=== PATIENT | female | born 1940 | race Caucasian/White ===

== ENCOUNTER → 2016-03-22 | Outpatient (CLI) | payer BC ==
[~2016-03-22] MED LIST: CEFU1TAB36 PO; CHOL1000 PO; CMD/25 PO; CMD25 PO; FLUT1INH7 INH; FURO-85 PO; HYDR-5688 PO; IMD/2 PO; IPRASOL4 INH; PSYL48.59 PO; PSYL55.43 PO; [UNRECOGNIZED DRUG - CODE] PO
--- NOTE | 2016-03-22 12:48 | DIAGNOSTIC IMAGING REPORT ---
CHEST CT WITHOUT CONTRAST CT DOSE: HISTORY: LUNG CANCER, PT HAS CONTRAST ALLERGY TECHNIQUE: Multiaxial CT images of the chest were performed without contrast. COMPARISON: Chest CT 09/19/2015. FINDINGS: Stable 6 mm nodule within the left lung apex. Stable small nodular and irregular densities within the right lung apex. No new pulmonary nodules identified. No pneumothorax. Trace right pleural effusion persists. A thick band of consolidation seen within the right lung is not suitably change. This contains a small amount of calcification. There is associated traction bronchiectasis. 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 Stable scarlike density within the upper right breast. No mediastinal or hilar lymphadenopathy on this noncontrast study. Stable volume loss within the right hemithorax consistent with prior postoperative change. No suspicious lytic or blastic osseous lesions. IMPRESSION: 1. Overall, no significant change compared the prior study. No evidence for recurrent or metastatic disease within the chest. 2. Stable postoperative/post radiation changes within the right hemithorax. 3. Please refer to the same day abdomen and pelvis CT for further evaluation of the abdominal structures. Electronically signed by: Gilbert Vásquez M.D. 03/22/2016 12:47 PM Dictated Date/Time: 03/22/2016 12:10 PM
--- NOTE | 2016-03-23 09:01 | DIAGNOSTIC IMAGING REPORT ---
CT OF THE ABDOMEN AND PELVIS WITH ORAL CONTRAST CT DOSE: 937.08 mGy.cm CLINICAL HISTORY: Lung cancer. TECHNIQUE: Axial images of the abdomen and pelvis were obtained without IV contrast. Oral contrast was administered. COMPARISON STUDY: CT of the abdomen and pelvis December 22, 2014. FINDINGS: The chest will be reported separately. Evaluation of the abdomen and pelvis is suboptimal given the lack of IV contrast. Unenhanced images of the liver, spleen, adrenal glands and pancreas are unremarkable. Mild dilatation of the common bile duct is unchanged from prior exam and likely due to cholecystectomy. A large left renal cyst is noted. There is a small right renal cyst. No enlarged abdominal or pelvic lymph nodes are present. There is no evidence for a bowel obstruction. No suspicious skeletal lesions are identified. IMPRESSION: No evidence for recurrent malignancy within the abdomen or pelvis on unenhanced exam. Electronically signed by: Lan Erazo M.D. 03/23/2016 8:59 AM Dictated Date/Time: 03/22/2016 12:17 PM
== END | disposition home or self-care (01) ==
LOC: C.CTS 11:34
PROVIDERS: ATTEND Internal Medicine Hematology & Oncology
DX: C34.90 Malignant neoplasm of unspecified part of unspecified bronchus or lung (principal)

== ENCOUNTER 2016-04-15 14:30 | Emergency (ER) | payer BC ==
[~2016-04-15] VITALS: Ht 157.5 cm; Wt 71.4 kg
[~2016-04-15 14:30] MED LIST changes: -CEFU1TAB36 PO; -FLUT1INH7 INH; -HYDR-5688 PO; -IPRASOL4 INH; -PSYL48.59 PO
[2016-04-15 14:35] VITALS: TEMP 36.8
[2016-04-15] MEDS ORDERED: ALBUT/IPRATROP 3MG/0.5MG NEB 3 ML VIAL INH STA (15:44)
--- NOTE | 2016-04-15 15:48 | EMERGENCY ROOM VISIT NOTE ---
History Report prepared by Enrrique: Dot Jacobo Under the Supervision of: Dr. Shiv Hale D.O. First contact with patient: 15:33 Chief Complaint: COUGH Stated Complaint: COUGH,VOMITING,HILLS,NO APPETITE Nursing Triage Summary: pt c/o breathing difficulty , chills, cough, . pt has hx of lung ca unsure if bronchitis or pneumonia History of Present Illness The patient is a 75 year old female who presents to the Emergency Room with complaints of a worsening cough for the past several days. She is accompanied by her . She has a history of lung cancer and complains of increased breathing difficulty along with the cough. She reports any time she gets a cold or flu like symptoms, "it goes very badly for me" and she ends up with bronchitis or a pneumonia. She denies any fevers. She notes the cough is productive with white to yellow colored sputum. The patient reports she went to a local urgent care clinic yesterday, where she was told she most likely had bronchitis and was started on Cefuroxime. She denies any chest pain but admits to some shortness of breath. Her breathing difficulties do worsen when she lays flat. The patient is on daily Coumadin and notes she received a flu shot this year. 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 A total of 10 systems reviewed and were otherwise negative. Past Medical & Surgical Medical Problems: (1) Adenocarcinoma of lung Social History Smoking Status: Never Smoker Alcohol Use: none Drug Use: none Marital Status: Housing Status: lives with family Occupation Status: retired Current/Historical Medications Scheduled Cefuroxime Axetil (Cefuroxime Axetil), 1 TAB PO BID Cholecalciferol (Vitamin D3), 2,000 UNITS PO DAILY Crizotinib (Xalkori), 200 MG PO BID Warfarin Sod (Coumadin), 2.5 MG PO [id number] Warfarin Sod (Coumadin), 3.75 MG PO WK Scheduled PRN Furosemide (Lasix), 20 MG PO DAILY PRN for Edema Loperamide Hcl (Imodium), 2 MG PO UD PRN for Diarrhea Psyllium (Metamucil Powder), 5 ML PO TID PRN for Diarrhea Allergies Coded Allergies: Morphine (Verified Allergy, Severe, SHORTNESS OF BREATH, 04/15/16) Iodinated Diagnostic Agents (Verified Adverse Reaction, Intermediate, GI Sx - constrast media, 04/15/16) Codeine (Verified Adverse Reaction, Mild, VOMITING, 04/15/16) Physical Exam Vital Signs Date Time Temp Pulse Resp B/P Pulse Ox O2 Delivery O2 Flow Rate FiO2 04/15/16 19:10 88 20 117/58 92 04/15/16 16:20 82 20 105/53 94 Room Air 04/15/16 16:10 82 04/15/16 15:56 100 Room Air 04/15/16 14:35 36.8 68 18 96/61 99 Room Air Physical Exam GENERAL: Patient is awake, alert, in no acute distress, patient is resting comfortably and showing no signs of anxiety EYES: The conjunctivae are clear. The pupils are round and reactive. EARS, NOSE, MOUTH AND THROAT: The nose is without any evidence of any deformity. Mucous membranes are moist tongue is midline NECK: The neck is nontender and supple. RESPIRATORY: Lung sounds are diminished throughout, scattered rhonchi noted throughout, no significant tachypnea or conversational dyspnea noted. CARDIOVASCULAR: Regular rate and rhythm noted there no murmurs rubs or gallops normal S1 normal S2 GASTROINTESTINAL: The abdomen is soft. Bowel sounds are present in all quadrants. Abdomen is nontender PELVIS: The Pelvis is stable. No tenderness to palpation is noted. BACK: No midline tenderness or or step-off noted range of motion in flexion extension as well as rotation no signs of muscle spasm noted MUSCULOSKELETAL/EXTREMITIES: There is no evidence of gross deformity full range of motion is noted in the hips and shoulders SKIN: Pedal edema bilaterally. There is no obvious evidence of any rash. There are no petechiae, pallor or cyanosis noted. NEUROLOGIC: Patient is awake alert and oriented x3 Medical Decision & Procedures ER Provider Diagnostic Interpretation: This X-Ray was reviewed and interpreted by myself and the radiologist. CHEST 2 VIEWS ROUTINE IMPRESSION: 1. Slight progression of the right pleural effusion. Postoperative changes and the right mid to lower lung zone opacification persist. 3. Emphysema. Electronically signed by: Gilbert Vásquez M.D. 04/15/2016 5:14 PM Laboratory Results 04/15/16 15:56 Red Blood Count 4.21, Mean Corpuscular Volume 96.9, Mean Corpuscular Hemoglobin 33.0, Mean Corpuscular Hemoglobin Concent 34.1, Mean Platelet Volume 10.4, Neutrophils (%) (Auto) 75.2, Lymphocytes (%) (Auto) 13.1, Monocytes (%) (Auto) 11.3, Eosinophils (%) (Auto) 0.0, Basophils (%) (Auto) 0.1, Neutrophils # (Auto ) 8.55, Lymphocytes # (Auto) 1.49, Monocytes # (Auto) 1.29, Eosinophils # (Auto ) 0.00, Basophils # (Auto) 0.01 04/15/16 15:56 Test 04/15/16 15:51 04/15/16 15:56 Influenza Type A Antigen Neg for Influ A (NEG) Influenza Type B Antigen Neg for Influ B (NEG) White Blood Count 11.37 K/uL (4.8-10.8) Red Blood Count 4.21 M/uL (4.2-5.4) Hemoglobin 13.9 g/dL (12.0-16.0) Hematocrit 40.8 % (37-47) Mean Corpuscular Volume 96.9 fL (80-100) Mean Corpuscular Hemoglobin 33.0 pg (25-34) Mean Corpuscular Hemoglobin Concent 34.1 g/dl (32-36) Platelet Count 157 K/uL (130-400) Mean Platelet Volume 10.4 fL (7.4-10.4) Neutrophils (%) (Auto) 75.2 % Lymphocytes (%) (Auto) 13.1 % Monocytes (%) (Auto) 11.3 % Eosinophils (%) (Auto) 0.0 % Basophils (%) (Auto) 0.1 % Neutrophils # (Auto) 8.55 K/uL (1.4-6.5) Lymphocytes # (Auto) 1.49 K/uL (1.2-3.4) Monocytes # (Auto) 1.29 K/uL (0.11-0.59) Eosinophils # (Auto) 0.00 K/uL (0-0.5) Basophils # (Auto) 0.01 K/uL (0-0.2) RDW Standard Deviation 48.5 fL (36.4-46.3) RDW Coefficient of Variation 13.6 % (11.5-14.5) Immature Granulocyte % (Auto) 0.3 % Immature Granulocyte # (Auto) 0.03 K/uL (0.00-0.02) Prothrombin Time 22.9 SECONDS (9.0-12.0) Prothromb Time International Ratio 2.1 (0.9-1.1) Activated Partial Thromboplast Time 43.2 SECONDS (21.0-31.0) Partial Thromboplastin Ratio 1.7 Anion Gap 10.0 mmol/L (3-11) Est Creatinine Clear Calc Drug Dose 25.7 ml/min Estimated GFR () 33.1 Estimated GFR (Non- 28.6 BUN/Creatinine Ratio 13.2 (10-20) Calcium Level 8.0 mg/dl (8.5-10.1) Total Bilirubin 0.7 mg/dl (0.2-1) Aspartate Amino Transf (AST/SGOT) 26 U/L (15-37) Alanine Aminotransferase (ALT/SGPT) 27 U/L (12-78) Alkaline Phosphatase 78 U/L (45-117) Troponin I < 0.015 ng/ml (0-0.045) Pro-B-Type Natriuretic Peptide 219 pg/ml (0-1800) Total Protein 6.6 gm/dl (6.4-8.2) Albumin 2.9 gm/dl (3.4-5.0) Globulin 3.7 gm/dl (2.5-4.0) Albumin/Globulin Ratio 0.8 (0.9-2) Laboratory results per my review. Medications Administered Medications (Trade) Dose Ordered Sig/Dominic Route Start Time Stop Time Status Last Admin Dose Admin Albuterol/ Ipratropium 3 ml 3 ml NOW STAT INH 04/15/16 15:44 04/15/16 15:45 DC 04/15/16 16:00 3 ML Sodium Chloride (Nss 1000ml) 1,000 ml @ 999 mls/hr Q1H1M STAT IV 04/15/16 17:52 04/15/16 18:52 DC 04/15/16 17:52 999 MLS/HR ED Course 1543: The patient was evaluated in room C8. A complete history and physical examination were performed. 1544: DuoNeb 3 ml INH. 1750: I reevaluated the patient. She is feeling much better and will continue all her medications as prescribed. 1752: NSS 1000 ml @ 999 mls/hr IV. Medical Decision Prior records/ancillary studies reviewed. Triage Nursing notes reviewed. Additional history obtained from the family. The patient's history was concerning for respiratory difficulties. Differential diagnosis: Etiologies such as infections, reactive airway disease, pneumonia, pneumothorax , COPD, CHF, cardiac ischemia, pulmonary embolism, musculoskeletal, gastrointestinal, as well as others were entertained. The patient is a 75-year-old female who presented to the emergency department for evaluation of shortness of breath and cough. The patient was seen by a provider and started on an antibiotic recently. She was concerned she may have pneumonia because she doesn't a history of cancer. She was treated with a DuoNeb in the emergency department. She was reevaluated multiple times. She was also given IV fluids. At this time I do not feel this represents pneumonia and I would recommend she continues on the antibiotic that she was started on. She was encouraged to rest and avoid any strenuous activity. She was also encouraged to call her primary care physician in the morning to schedule a follow-up point 8. She was also encouraged to discuss the possibility that she may require repeat laboratory studies specifically her left lites. She was also encouraged to return to the emergency apartment immediately if symptoms change worsen or the need arises. Impression Primary Impression: Bronchitis Additional Impression: Dehydration Scribe Attestation The scribe's documentation has been prepared under my direction and personally reviewed by me in its entirety. I confirm that the note above accurately reflects all work, treatment, procedures, and medical decision making performed by me. Departure Information Dispostion Home / Self-Care Referrals Shiv Langston M.D. (PCP) Patient Instructions Bronchitis Acute, Dehydration, My [facility] Additional Instructions Call your family in the morning to schedule a follow-up appointment. Rest and avoid any strenuous activity. Continue all medications as prescribed. Drink plenty clear liquids. Problem Qualifiers
[2016-04-15] MEDS ORDERED: CEFU1TAB36 PO (15:54)
[2016-04-15 15:56] VITALS: O2SAT 100
[2016-04-15 16:06] VITALS: Ht 157.5 cm; Wt 71.4 kg
[2016-04-15 16:09] LABS: HEMATOCRIT 40.8 % (37-47); MEAN CELL VOLUME 96.9 fL (80-100); MEAN CORPUSCULAR HGB CONC 34.1 g/dl (32-36); MEAN PLATELET VOLUME 10.4 fL (7.4-10.4); PLATELET COUNT 157 K/uL (130-400); RED BLOOD COUNT 4.21 M/uL (4.2-5.4); WHITE BLOOD COUNT 11.37 K/uL (4.8-10.8)
[2016-04-15 16:24] LABS: INR 2.1 (0.9-1.1); PARTIAL THROMBOPLASTIN RATIO 1.7; PROTHROMBIN TIME (PATIENT) 22.9 SECONDS (9.0-12.0)
[2016-04-15 16:27] LABS: BASO % 0.1 %; BASO ABS # 0.01 K/uL (0-0.2); COMPLETE YES; IG% 0.3 %; LYMPH % 13.1 %; LYMPH ABS # 1.49 K/uL (1.2-3.4); MONO % 11.3 %; NEUT % 75.2 %
[2016-04-15 16:48] LABS: ALT/SGPT 27 U/L (12-78); AST/SGOT 26 U/L (15-37); BLOOD UREA NITROGEN 22 mg/dl (7-18); BUN/CREATININE RATIO 13.2 (10-20); CARBON DIOXIDE 25 mmol/L (21-32); CHLORIDE 103 mmol/L (98-107); GLUCOSE 118 mg/dl (70-99); POTASSIUM 4.3 mmol/L (3.5-5.1); SODIUM 138 mmol/L (136-145)
[2016-04-15 16:53] LABS: ALB/GLOB RATIO 0.8 (0.9-2); ALKALINE PHOSPHATASE 78 U/L (45-117)
--- NOTE | 2016-04-15 17:15 | DIAGNOSTIC IMAGING REPORT ---
CHEST 2 VIEWS ROUTINE HISTORY: EVALUATE RESPIRATORY DISTRESS.DYSPNEA COMPARISON: Chest 12/27/2015. FINDINGS: The lungs are hyperexpanded with apical predominant emphysematous changes. No pneumothorax. The right mid to lower lung zone opacity is again noted. The left lung is clear. The cardiac silhouette is normal in size. Multiple surgical clips at the right hilum. Prior cholecystectomy. Right pleural fluid has slightly progressed. IMPRESSION: 1. Slight progression of the right pleural effusion. Postoperative changes and the right mid to lower lung zone opacification persist. 3. Emphysema. Electronically signed by: Gilbert Vásquez M.D. 04/15/2016 5:14 PM Dictated Date/Time: 04/15/2016 5:12 PM
[2016-04-15] MEDS ORDERED: SODIUM CHLORIDE 0.9% 1000ML 1,000 ML IV STA (17:52)
[2016-04-15 19:10] VITALS: BP 117/58; PULSE 88; O2SAT 92
[2016-10-31] MEDS ORDERED: FLUT1INH7 INH (09:24)
== END 2016-04-15 19:11 | disposition home or self-care (01) ==
LOC: C.EDB 14:30 → C.EDC 19:11
DX: J40 Bronchitis, not specified as acute or chronic (principal); E86.0 Dehydration; Z85.118 Personal history of other malignant neoplasm of bronchus and lung; Z79.01 Long term (current) use of anticoagulants; Z79.899 Other long term (current) drug therapy; Z88.5 Allergy status to narcotic agent; Z91.041 Radiographic dye allergy status

== ENCOUNTER 2016-06-17 12:57 | Emergency (ER) | payer BC ==
[~2016-06-17] VITALS: Ht 157.5 cm; Wt 71.2 kg
[2016-06-17 13:12] VITALS: TEMP 36.6; Ht 157.5 cm; Wt 71.2 kg
[2016-06-17] MEDS ORDERED: IPRASOL4 INH (13:29)
[2016-06-17] MEDS ORDERED: PSYL48.59 PO (13:29)
[2016-06-17] MEDS ORDERED: XYLOCAINE 1%/SOD BICARB 20 ML VIAL INFIL ONE (13:36)
[2016-06-17] MEDS ORDERED: ONDANSETRON INJ 2 MG/ML 2 ML VIAL IV STA (13:50)
[2016-06-17] MEDS ORDERED: SODIUM CHLORIDE 0.9% 1000ML 1,000 ML IV STA (13:50)
[2016-06-17] MEDS ORDERED: FENTANYL CITRATE INJ 50 MCG/1 ML 2 ML VIAL IV STA (13:50)
[2016-06-17 13:59] LABS: COMPLETE YES; EOS % 0.9 %; HEMATOCRIT 41.8 % (37-47); IG% 0.7 %; LYMPH % 20.6 %; LYMPH ABS # 1.15 K/uL (1.2-3.4); MEAN CELL VOLUME 96.8 fL (80-100); MEAN CORPUSCULAR HEMOGLOBIN 33.1 pg (25-34); MEAN CORPUSCULAR HGB CONC 34.2 g/dl (32-36); MEAN PLATELET VOLUME 10.3 fL (7.4-10.4); MONO % 10.6 %; NEUT % 67.2 %; PLATELET COUNT 219 K/uL (130-400); RED BLOOD COUNT 4.32 M/uL (4.2-5.4); WHITE BLOOD COUNT 5.57 K/uL (4.8-10.8)
[2016-06-17 14:06] LABS: INR 2.5 (0.9-1.1); PARTIAL THROMBOPLASTIN RATIO 1.5; PROTHROMBIN TIME (PATIENT) 27.4 SECONDS (9.0-12.0)
[2016-06-17 14:13] LABS: BUN/CREATININE RATIO 18.5 (10-20); CALCIUM 8.5 mg/dl (8.5-10.1); CREATININE 1.3 mg/dl (0.60-1.20); POTASSIUM 4.5 mmol/L (3.5-5.1)
--- NOTE | 2016-06-17 14:41 | DIAGNOSTIC IMAGING REPORT ---
RIGHT HUMERUS MIN 2 VIEWS ROUTINE CLINICAL HISTORY: Fall. Right arm deformity. COMPARISON: Chest CT March 22, 2016. FINDINGS: There is an acute mildly displaced right humeral neck fracture which extends into the inferior aspect of the right humeral head. No additional fractures of the right humerus are identified. Post surgical findings within the right lung are incidentally noted. IMPRESSION: Acute mildly displaced right humeral neck fracture. Electronically signed by: Lan Erazo M.D. 06/17/2016 2:39 PM Dictated Date/Time: 06/17/2016 2:37 PM
--- NOTE | 2016-06-17 15:12 | DIAGNOSTIC IMAGING REPORT ---
HEAD CT NONCONTRAST CT DOSE: 712.55 mGy.cm HISTORY: Closed head injury. TECHNIQUE: Multiaxial CT images of the head were performed without the use of intravenous contrast. Automated exposure control was utilized for this study. Comparison: PET CT 06/27/2011. Findings: The paranasal sinuses and mastoid air cells are clear. The calvarium and skull base are intact. There is no mass, hematoma, midline shift, acute infarct. White matter hypodensity is nonspecific but suggestive of microvascular ischemic change. The ventricles and sulci demonstrate mild age-related involutional changes. Small right frontal scalp laceration. Impression: No acute intracranial abnormality. Small right frontal scalp laceration. Electronically signed by: Gilbert Vásquez M.D. 06/17/2016 3:09 PM Dictated Date/Time: 06/17/2016 3:04 PM
--- NOTE | 2016-06-17 15:35 | EMERGENCY ROOM VISIT NOTE ---
ED Visit Note I was requested by Dr. Taylor to repair a 2 cm facial laceration. Wound Repair: Complexity: Complex Verbal consent was obtained after the risks and benefits were explained, including but not limited to bleeding, scarring, infection, pain, and bone/joint /nerve damage. The skin was prepped with betadine and a sterile field set. The wound was anesthetized with 3.0 ml of 1% buffered lidocaine. With direct pressure the bleeding subsided. Copious irrigation was performed using sterile saline. The wound was explored for foreign bodies and none found. Debridement was not performed. The deep tissue was approximated with 3 interrupted 6-0 Vicryl sutures. The wound edges were then approximated using 6-0 Ethilon with 6 simple interrupted sutures. Hemostasis and excellent approximation was achieved. Antibacterial ointment and a sterile dressing applied. Detailed wound care instructions and signs and symptoms of infection reviewed with the patient. No complications and the patient tolerated the procedure well.
[2016-06-17] MEDS ORDERED: HYDR-5688 PO (16:28)
[2016-06-17] MEDS ORDERED: NORCO 5/325MG HOME PACK PO ONE (16:30)
[2016-06-17] MEDS ORDERED: DIPHTHERIA/TETANUS/PERTUSSIS 0.5 ML SYR/VIAL IM. ONE (16:30)
[2016-06-17 17:05] VITALS: BP 146/86; PULSE 84; O2SAT 94
--- NOTE | 2016-06-17 17:18 | EMERGENCY ROOM VISIT NOTE ---
History Report prepared by Enrrique: Beata Lovett Under the Supervision of: Dr. Liana Taylor M.D. First contact with patient: 13:36 Chief Complaint: FALL Stated Complaint: FALL History of Present Illness The patient is a 75 year old female who presents to the Emergency Room with complaints of persistent bleeding from her head starting [employer]. She tripped and fell today and hit her head and injured her right arm. She did not pass out. She had a nose bleed. The pain in her arm worsens with movement. She is on Coumadin for blood clots. She has swelling which is normal and due to her cancer medications. Source of History: patient Onset: [employer] Position: head Quality: other (bleeding) Timing: other (persistent) Note: Pt reports arm pain, nose bleed. She denies passing out. Review of Systems See HPI for pertinent positives & negatives. A total of 10 systems reviewed and were otherwise negative. Past Medical & Surgical Medical Problems: (1) Adenocarcinoma of lung Family History No pertinent family history reported. Social History Smoking Status: Never Smoker Alcohol Use: none Drug Use: none Marital Status: Housing Status: lives with family Occupation Status: retired Current/Historical Medications Scheduled Cholecalciferol (Vitamin D3), 2,000 UNITS PO DAILY Crizotinib (Xalkori), 200 MG PO BID Psyllium (Metamucil), 1 TSP PO BID Warfarin Sod (Coumadin), 2.5 MG PO 6XWK Warfarin Sod (Coumadin), 3.75 MG PO WK Scheduled PRN Furosemide (Lasix), 20 MG PO DAILY PRN for Edema Hydrocodone/Acetaminophen 5MG/325MG ([place] 5MG/325MG), 1-2 TABLET PO Q6 PRN for Pain Ipratropium-Albuterol (Duoneb), 1 TREATMENT INH Q4H PRN for SOB/Wheezing Loperamide Hcl (Imodium), 2 MG PO UD PRN for Diarrhea Allergies Coded Allergies: Morphine (Verified Allergy, Severe, SHORTNESS OF BREATH, 06/17/16) Iodinated Diagnostic Agents (Verified Adverse Reaction, Intermediate, GI Sx - constrast media, 06/17/16) Codeine (Verified Adverse Reaction, Mild, VOMITING, 06/17/16) Physical Exam Vital Signs Date Time Temp Pulse Resp B/P Pulse Ox O2 Delivery O2 Flow Rate FiO2 06/17/16 17:05 84 20 146/86 94 06/17/16 15:48 78 20 158/78 98 Room Air 06/17/16 14:06 76 06/17/16 13:12 36.6 75 18 113/95 100 Room Air Physical Exam Vital signs reviewed. General: Chronically ill-appearing, in no significant distress. HEENT: No scleral icterus, PERRLA, neck supple. Cardiovascular: Regular rate and rhythm, no extra sounds. Pulmonary: Clear to auscultation bilaterally, normal work of breathing. Abdomen: Soft, nontender, nondistended, positive bowel sounds. Musculoskeletal: Nontender over the cervical spine. No deformity. Swelling and tenderness to right humerus with diffuse edema to the arms and legs that is pitting. Neurologic: Patient awake alert and oriented x 3, full strength in all 4 extremities. Cranial nerves 2 through 12 grossly intact. Skin: Warm, dry, no rash. 2 cm linear laceration to the right forehead. Medical Decision & Procedures ER Provider Diagnostic Interpretation: X-ray results as stated below per interpretation by me and the radiologist. Radiology results as stated below per my review and radiologist interpretation: HEAD CT NONCONTRAST CT DOSE: 712.55 mGy.cm HISTORY: Closed head injury. TECHNIQUE: Multiaxial CT images of the head were performed without the use of intravenous contrast. Automated exposure control was utilized for this study. Comparison: PET CT 06/27/2011. Findings: The paranasal sinuses and mastoid air cells are clear. The calvarium and skull base are intact. There is no mass, hematoma, midline shift, acute infarct. White matter hypodensity is nonspecific but suggestive of microvascular ischemic change. The ventricles and sulci demonstrate mild age-related involutional changes. Small right frontal scalp laceration. Impression: No acute intracranial abnormality. Small right frontal scalp laceration. Electronically signed by: Gilbert Vásquez M.D. 06/17/2016 3:09 PM Dictated Date/Time: 06/17/2016 3:04 PM RIGHT HUMERUS MIN 2 VIEWS ROUTINE CLINICAL HISTORY: Fall. Right arm deformity. COMPARISON: Chest CT March 22, 2016. FINDINGS: There is an acute mildly displaced right humeral neck fracture which extends into the inferior aspect of the right humeral head. No additional fractures of the right humerus are identified. Post surgical findings within the right lung are incidentally noted. IMPRESSION: Acute mildly displaced right humeral neck fracture. Electronically signed by: Lan Erazo M.D. 06/17/2016 2:39 PM Dictated Date/Time: 06/17/2016 2:37 PM Laboratory Results 06/17/16 13:15 Red Blood Count 4.32, Mean Corpuscular Volume 96.8, Mean Corpuscular Hemoglobin 33.1, Mean Corpuscular Hemoglobin Concent 34.2, Mean Platelet Volume 10.3, Neutrophils (%) (Auto) 67.2, Lymphocytes (%) (Auto) 20.6, Monocytes (%) (Auto) 10.6, Eosinophils (%) (Auto) 0.9, Basophils (%) (Auto) 0.0, Neutrophils # (Auto ) 3.74, Lymphocytes # (Auto) 1.15, Monocytes # (Auto) 0.59, Eosinophils # (Auto ) 0.05, Basophils # (Auto) 0.00 06/17/16 13:15 Test 06/17/16 13:15 White Blood Count 5.57 K/uL (4.8-10.8) Red Blood Count 4.32 M/uL (4.2-5.4) Hemoglobin 14.3 g/dL (12.0-16.0) Hematocrit 41.8 % (37-47) Mean Corpuscular Volume 96.8 fL (80-100) Mean Corpuscular Hemoglobin 33.1 pg (25-34) Mean Corpuscular Hemoglobin Concent 34.2 g/dl (32-36) Platelet Count 219 K/uL (130-400) Mean Platelet Volume 10.3 fL (7.4-10.4) Neutrophils (%) (Auto) 67.2 % Lymphocytes (%) (Auto) 20.6 % Monocytes (%) (Auto) 10.6 % Eosinophils (%) (Auto) 0.9 % Basophils (%) (Auto) 0.0 % Neutrophils # (Auto) 3.74 K/uL (1.4-6.5) Lymphocytes # (Auto) 1.15 K/uL (1.2-3.4) Monocytes # (Auto) 0.59 K/uL (0.11-0.59) Eosinophils # (Auto) 0.05 K/uL (0-0.5) Basophils # (Auto) 0.00 K/uL (0-0.2) RDW Standard Deviation 48.8 fL (36.4-46.3) RDW Coefficient of Variation 13.7 % (11.5-14.5) Immature Granulocyte % (Auto) 0.7 % Immature Granulocyte # (Auto) 0.04 K/uL (0.00-0.02) Prothrombin Time 27.4 SECONDS (9.0-12.0) Prothromb Time International Ratio 2.5 (0.9-1.1) Activated Partial Thromboplast Time 37.9 SECONDS (21.0-31.0) Partial Thromboplastin Ratio 1.5 Anion Gap 9.0 mmol/L (3-11) Est Creatinine Clear Calc Drug Dose 33.5 ml/min Estimated GFR () 45.8 Estimated GFR (Non- 39.5 BUN/Creatinine Ratio 18.5 (10-20) Calcium Level 8.5 mg/dl (8.5-10.1) Total Bilirubin 0.5 mg/dl (0.2-1) Direct Bilirubin 0.2 mg/dl (0-0.2) Aspartate Amino Transf (AST/SGOT) 30 U/L (15-37) Alanine Aminotransferase (ALT/SGPT) 35 U/L (12-78) Alkaline Phosphatase 100 U/L (45-117) Total Protein 6.6 gm/dl (6.4-8.2) Albumin 3.0 gm/dl (3.4-5.0) Laboratory results per my review. Medications Administered Medications (Trade) Dose Ordered Sig/Dominic Route Start Time Stop Time Status Last Admin Dose Admin Fentanyl Citrate (Fentanyl Inj) 50 mcg NOW STAT IV 06/17/16 13:50 06/17/16 13:53 DC 06/17/16 13:56 50 MCG Ondansetron HCl 4 mg 4 mg NOW STAT IV 06/17/16 13:50 06/17/16 13:53 DC 06/17/16 13:55 4 MG Sodium Chloride (Nss 1000ml) 1,000 ml @ 125 mls/hr Q8H STAT IV 06/17/16 13:50 06/17/16 17:42 DC 06/17/16 13:56 125 MLS/HR Acetaminophen/ Hydrocodone Bitart ([place] 5/325mg Home Pack) 1 homepack UD ONCE PO 06/17/16 16:30 06/17/16 16:31 DC 06/17/16 16:52 1 HOMEPACK Diphtheria/ Pertussis/Tetanus Vacc (Adacel Inj) 0.5 ml ONCE ONCE IM. 06/17/16 16:30 06/17/16 16:31 DC 06/17/16 16:53 0.5 ML ECG Indication: other (fall) Rate (beats per minute): 77 Rhythm: normal sinus Findings: no acute ischemic change, no ectopy ED Course 1336: Lidocaine HCl 20 ml INFIL. 1346: Past medical records reviewed. The patient was evaluated in room B12B. A complete history and physical examination was performed. 1350: NSS 1000 ml @ 125 mls/hr IV, Zofran Inj 4 mg IV, Fentanyl Inj 50 mcg IV. 1614: Upon reevaluation, the patient appeared to have improvement of her symptoms. I discussed findings with her. She verbalized agreement of the treatment plan. She was discharged home. 1630: Adacel Inj 0.5 ml IM, Acetaminophen/Hydrocodone Bitart 1 homepack PO. Medical Decision Differential diagnoses: Intracranial injury, cervical spine injury, intrathoracic injury, intra- abdominal injury, musculoskeletal injury. This patient was evaluated and appeared to be in no significant distress. IV access was obtained and laboratory work was drawn. CT scan of the head was performed and is negative for acute intracranial abnormality. Patient was given IV fentanyl for pain and IV Zofran with good relief. Patient was hydrated with normal saline solution. The right facial laceration was repaired. Please see Yanira Robledo PA-C's notes for further details. The patient was given Adacel injection. X-ray of the right humerus reveals a humeral neck fracture. Patient was placed in a sling and swath. Patient was advised to follow-up with orthopedics for reevaluation of the arm this week. Patient was given a Viraliti home pack for discharge. She'll follow-up with her physician this week for reevaluation. Patient was apprised have the sutures removed in 5-7 days. She and her were given wound care instructions. She will return to the ER for worsening symptoms or any medical concerns. Impression Primary Impression: Laceration of face Additional Impressions: Closed right humeral fracture Fall Scribe Attestation The scribe's documentation has been prepared under my direction and personally reviewed by me in its entirety. I confirm that the note above accurately reflects all work, treatment, procedures, and medical decision making performed by me. Departure Information Dispostion Home / Self-Care Prescriptions Hydrocodone/Acetaminophen 5MG/325MG ([place] 5MG/325MG) Tab 1-2 TABLET PO Q6 Y for Pain, #20 TAB Prov: Liana Taylor M.D. 06/17/16 Referrals Shiv Langston M.D. (PCP) Quinton Russell M.D. Forms HOME CARE DOCUMENTATION FORM, IMPORTANT VISIT INFORMATION Patient Instructions ED Head Injury Closed, My [facility] Additional Instructions Diagnosis: Facial laceration, Humeral fracture, Head injury, Fall Follow-up with orthopedic surgery this week for reevaluation. Ice the right shoulder intermittently for 24-48 hours. Wear the sling until you are reevaluated. Read head injury handout and return for any symptoms. Keep wound clean and dry. No water on the area for 12-24 hrs then no soaking until sutures removed. Do not allow any crusting or dried blood to accumulate on sutures. If this occurs, use a 1:1 solution of hydrogen peroxide/water on a Q-tip to clean the wound. Use an antibiotic ointment for 3 days, then let wound dry. Suture removal in 5-7 days. Follow up sooner for any signs of infection (increasing redness, swelling, drainage, fever). Ice for swelling. [place] one to 2 tabs every 6 hours as needed for severe pain (Maximum 3000 mg Tylenol in 24 hr period ). Keep covered when in sun until sutures removed then SPF 50 or higher for one year. Vitamin E oil if desired two weeks after suture removal for reduction of scar. Follow-up with your physician this week for reevaluation. Return to the ER for worsening of symptoms or any medical concerns. Problem Qualifiers Primary Impression: Laceration of face Encounter type: initial encounter Qualified Codes: S01.81XA - Laceration without foreign body of other part of head, initial encounter Additional Impressions: Closed right humeral fracture Encounter type: initial encounter Humerus Location: proximal Fracture morphology: other fracture Fracture alignment: nondisplaced Qualified Codes : S42.294A - Other nondisplaced fracture of upper end of right humerus, initial encounter for closed fracture Fall Encounter type: initial encounter Qualified Codes: W19.XXXA - Unspecified fall, initial encounter
[2016-10-31] MEDS ORDERED: FLUT1INH7 INH (09:24)
[2017-02-06] MEDS ORDERED: WARF2.5T8 PO (09:27)
[2017-02-06] MEDS ORDERED: WARF5TAB7 PO (09:28)
== END 2016-06-17 17:06 | disposition home or self-care (01) ==
LOC: EDBD 12:57 → C.EDB 12:57
DX: S01.81XA Laceration without foreign body of other part of head, initial encounter (principal); S42.301A Unspecified fracture of shaft of humerus, right arm, initial encounter for closed fracture; W01.0XXA Fall on same level from slipping, tripping and stumbling without subsequent striking against object, initial encounter; Z23 Encounter for immunization; Z79.01 Long term (current) use of anticoagulants; Z79.899 Other long term (current) drug therapy; Z88.5 Allergy status to narcotic agent; Z91.041 Radiographic dye allergy status

== ENCOUNTER → 2016-07-24 | Outpatient (CLI) | payer BC ==
[~2016-07-24] MED LIST changes: +BENZ100C84 PO; +FLUT1INH7 INH; +IPRASOL4 INH; +PSYL48.59 PO; -PSYL55.43 PO; +WARF2.5T8 PO; +WARF5TAB7 PO
--- NOTE | 2016-07-24 11:09 | DIAGNOSTIC IMAGING REPORT ---
CHEST 2 VIEWS ROUTINE CLINICAL HISTORY: LUNG CANCER carcinoma COMPARISON STUDY: 04/15/2016 FINDINGS: Unchanged postoperative change right hemithorax. Unchanging increase in density combine with a small right effusion. This is seen at the right base and again is unchanged. Left lung remains clear. There are no new or interval findings. IMPRESSION: Chronic and postoperative changes right midlung and right base. No change in the prior study. No acute process. Electronically signed by: Esdras Robledo M.D. 07/24/2016 11:08 AM Dictated Date/Time: 07/24/2016 11:06 AM
== END | disposition home or self-care (01) ==
LOC: C.RAD 10:14
PROVIDERS: ATTEND Nurse Practitioner Family
DX: C34.90 Malignant neoplasm of unspecified part of unspecified bronchus or lung (principal)

== ENCOUNTER → 2016-09-26 | Outpatient (CLI) | payer BC ==
[~2016-09-26] MED LIST changes: -BENZ100C84 PO; -WARF2.5T8 PO; -WARF5TAB7 PO
== END | disposition home or self-care (01) ==
LOC: C.LAB 12:38
PROVIDERS: ATTEND Internal Medicine
DX: E55.9 Vitamin D deficiency, unspecified (principal); C34.90 Malignant neoplasm of unspecified part of unspecified bronchus or lung; Z51.81 Encounter for therapeutic drug level monitoring; Z79.01 Long term (current) use of anticoagulants; I26.99 Other pulmonary embolism without acute cor pulmonale

== ENCOUNTER → 2016-11-21 | Outpatient (CLI) | payer BC ==
--- NOTE | 2016-11-21 14:20 | DIAGNOSTIC IMAGING REPORT ---
CT OF THE ABDOMEN AND PELVIS WITH ORAL CONTRAST ONLY CLINICAL HISTORY: Lung cancer. COMPARISON STUDY: CT of the abdomen and pelvis March 22, 2016 and PET/CT September 09, 2013. TECHNIQUE: Axial images of the abdomen and pelvis were obtained without IV contrast. Oral contrast was administered. The chest will be reported separately. FINDINGS: Evaluation is suboptimal given the lack of IV contrast. There is no biliary ductal dilatation status post cholecystectomy. Unenhanced images of liver, spleen, adrenal glands and pancreas are normal. Bilateral water attenuation renal lesions are suboptimally assessed on this unenhanced exam but likely reflect cysts. There is no evidence for a bowel obstruction. Scattered colonic diverticula are noted without evidence for acute diverticulitis. No enlarged abdominal or pelvic lymph nodes are identified on this unenhanced exam. No suspicious osseous lesions are present. Degenerative disc disease is noted at L2-L3. IMPRESSION: No evidence for recurrent malignancy on this unenhanced exam. Electronically signed by: Lan Erazo M.D. 11/21/2016 2:19 PM Dictated Date/Time: 11/21/2016 2:07 PM
--- NOTE | 2016-11-21 14:21 | DIAGNOSTIC IMAGING REPORT ---
(CHEST) THORAX WITHOUT CT DOSE: HISTORY: Lung cancer. Follow-up. TECHNIQUE: Multiaxial CT images of the chest were performed without contrast. A dose lowering technique was utilized adhering to the principles of ALARA. COMPARISON: Chest CT 03/22/2016. FINDINGS: Stable 6 mm nodule within the left lung apex. Stable small nodular and irregular densities within the right lung apex. No new pulmonary nodules identified. No pneumothorax. Trace right pleural effusion persists. A thick band of consolidation seen within the right lung is not significantly changed. This contains a small amount of calcification. There is associated traction bronchiectasis. 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 Stable scarlike density within the upper right breast. No mediastinal or hilar lymphadenopathy on this noncontrast study. Stable volume loss within the right hemithorax consistent with prior postoperative change. No suspicious lytic or blastic osseous lesions. Stable faint peripheral groundglass densities within the base of the left lower lobe. Small groundglass nodular densities within the base of the right lower lobe have progressed. Stable soft tissue thickening surrounding the right mainstem bronchus. IMPRESSION: 1. Interval development of small groundglass nodular densities within the base the right lower lobe. This suggests mild inflammatory/infectious change. 2. Otherwise, no significant change compared the prior study. No definite evidence for recurrent or metastatic disease within the chest. Biapical nodular densities persist. 3. Stable postoperative/post radiation changes within the right hemithorax. 4. Please refer to the same day abdomen and pelvis CT for further evaluation of the abdominal structures. Electronically signed by: Gilbert Vásquez M.D. 11/21/2016 2:20 PM Dictated Date/Time: 11/21/2016 2:04 PM
== END | disposition home or self-care (01) ==
LOC: C.CTS 13:39
PROVIDERS: ATTEND Nurse Practitioner Family
DX: C34.90 Malignant neoplasm of unspecified part of unspecified bronchus or lung (principal); R91.8 Other nonspecific abnormal finding of lung field; Z98.890 Other specified postprocedural states; Z92.3 Personal history of irradiation

== ENCOUNTER 2017-01-12 22:24 | Inpatient (IN) | payer BC, OTHER ==
[~2017-01-12] VITALS: Ht 160 cm; Wt 69.0 kg
[2017-01-12 23:15] LABS: BASO % 0.2 %; BASO ABS # 0.01 K/uL (0-0.2); COMPLETE YES; EOS % 1.4 %; IG% 0.2 %; LYMPH % 18.1 %; LYMPH ABS # 1.02 K/uL (1.2-3.4); MEAN CELL VOLUME 97.8 fL (80-100); MEAN CORPUSCULAR HGB CONC 32.8 g/dl (32-36); MEAN PLATELET VOLUME 9.6 fL (7.4-10.4); MONO % 12.9 %; NEUT % 67.2 %; PLATELET COUNT 212 K/uL (130-400); RED BLOOD COUNT 4.09 M/uL (4.2-5.4); WHITE BLOOD COUNT 5.65 K/uL (4.8-10.8)
[2017-01-12 23:25] LABS: INR 2.4 (0.9-1.1); PARTIAL THROMBOPLASTIN RATIO 1.6; PROTHROMBIN TIME (PATIENT) 26.7 SECONDS (9.0-12.0)
[2017-01-12 23:35] LABS: ALT/SGPT 34 U/L (12-78); BLOOD UREA NITROGEN 33 mg/dl (7-18); BUN/CREATININE RATIO 22.1 (10-20); CALCIUM 8.3 mg/dl (8.5-10.1); CARBON DIOXIDE 23 mmol/L (21-32); CHLORIDE 112 mmol/L (98-107); GLUCOSE 112 mg/dl (70-99); POTASSIUM 4.5 mmol/L (3.5-5.1); SODIUM 143 mmol/L (136-145)
[2017-01-12 23:40] LABS: ALKALINE PHOSPHATASE 118 U/L (45-117); AST/SGOT 35 U/L (15-37); CKMB/CK RATIO 1.6 (0-3.0)
[2017-01-12] MEDS ORDERED: OPTIRAY 320 IV PRN (23:45)
[2017-01-13] VITALS (10 sets, daily range): BP systolic 99–155; BP diastolic 52–75; PULSE 71–110; TEMP 36.4–36.8; O2SAT 94–98; Ht 160 cm; Wt 69.0 kg
[2017-01-13] MEDS ORDERED: ONDANSETRON INJ 2 MG/ML 2 ML VIAL ONE (00:35)
[2017-01-13] MEDS ORDERED: PHYTONADIONE INJ 10 MG in SODIUM CHLORIDE 0.9% 50ML 50 ML IV STA (01:37)
--- NOTE | 2017-01-13 01:52 | EMERGENCY ROOM VISIT NOTE ---
History Report prepared by Enrrique: Conor Ervin Under the Supervision of: Dr. Cipriano Banks D.O. First contact with patient: 22:31 Chief Complaint: GI ASSESSMENT Stated Complaint: SPITTING UP GOBS OF BLOOD History of Present Illness The patient is a 76 year old female who presents to the Emergency Room with complaints of intermittent bloody coughs that started prior to arrival. She states that she went to go to the bathroom and felt as if something was in her throat. The patient reports that she started to cough and she noticed that she was coughing up "gobs of blood". The patient states that she believes it is clots in her mucous. She states that she had this episode three times. The patient states that she stopped experiencing this cough without using any medication on the way to the ED. She admits that she has a history of a blood clot in her lungs a couple of years ago, which she was put on Coumadin for. The patient states that her last Coumadin check was 2.5 last week. She admits that she has a history of lung cancer, which she does radiation and chemotherapy for. The patient reports that she has some kidney damage from the chemotherapy. She denies shortness of breath and fever. 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 A total of 10 systems reviewed and were otherwise negative. Past Medical & Surgical Medical Problems: (1) Adenocarcinoma of lung (2) History of cholecystectomy (3) Hypertension (4) Subclavian vein thrombosis (5) Tachycardia Surgical Problems: (1) H/O: hysterectomy (2) History of thoracotomy Family History Patient reports no known family medical history. Social History Smoking Status: Never Smoker Alcohol Use: occasionally Drug Use: none Marital Status: Housing Status: lives with family Occupation Status: retired Current/Historical Medications Scheduled Cholecalciferol (Vitamin D3), 2,000 UNITS PO DAILY Crizotinib (Xalkori), 200 MG PO BID Psyllium (Metamucil), 1 TSP PO BID Warfarin Sod (Coumadin), 2.5 MG PO 6XWK Warfarin Sod (Coumadin), 3.75 MG PO WK Scheduled PRN Furosemide (Lasix), 20 MG PO DAILY PRN for Edema Ipratropium-Albuterol (Duoneb), 1 TREATMENT INH Q4H PRN for SOB/Wheezing Loperamide Hcl (Imodium), 2 MG PO UD PRN for Diarrhea Allergies Coded Allergies: Morphine (Verified Allergy, Severe, SHORTNESS OF BREATH, 01/12/17) Iodinated Diagnostic Agents (Verified Adverse Reaction, Intermediate, GI Sx - constrast media, 01/12/17) Codeine (Verified Adverse Reaction, Mild, VOMITING, 01/12/17) Physical Exam Vital Signs Date Time Temp Pulse Resp B/P (MAP) Pulse Ox O2 Delivery O2 Flow Rate FiO2 01/13/17 00:48 89 18 142/76 98 Room Air 01/12/17 22:38 94 01/12/17 22:27 36.8 95 18 151/80 97 Room Air Physical Exam CONSTITUTIONAL/VITAL SIGNS: Reviewed / noted above. GENERAL: Non-toxic in appearance. INTEGUMENTARY: Warm, dry, and [place]. HEAD: Normocephalic. EYES: without scleral icterus or trauma. ENT/OROPHARYNX: clear and moist. LYMPHADENOPATHY/NECK: Is supple without lymphadenopathy or meningismus. RESPIRATORY: Slightly diminished breath sounds on right compared to the left. No increased work of breathing. No respiratory distress. CARDIOVASCULAR: Regular rate and rhythm. GI/ABDOMEN: Soft and nontender. No organomegaly or pulsatile mass. No rebound or guarding. Normal bowel sounds. EXTREMITIES: Warm and well perfused. BACK: No CVA tenderness. NEUROLOGICAL: Intact without focal deficits. PSYCHIATRIC: normal affect. MUSCULOSKELETAL: Normally developed with good muscle tone. Medical Decision & Procedures ER Provider Diagnostic Interpretation: Radiology results as stated below per my review and radiologist interpretation: CHEST X-RAY: Right sided pleural effusion/ atelectasis. No obvious pneumonia. No significant change from July 24, 2016. CT CHEST with Contrast: Comparison: CT chest November 21, 2016. Impression: 1. No pulmonary embolism 2. No aortic aneurysm or dissection 3. Stable area of mass or atelectasis extending a bandlike pattern from the hilum to the pleural surface, predominantly in the right lower lobe. Stable soft tissue thickening surrounding the right mainstem bronchus. This may be related to postoperative/ post radiation changes. Comment: No significant lymphadenopathy. Band like linear of atelectasis versus mass in the right lower lobe extending parallel to however separate from the major fissure. Within this area there is bronchiectasis as well as calcifications. Atelectasis extends from the kacey to the pleural surface. This is relatively stable since November. Stable 6 mm nodule in the left lung apex and stable somewhat linear density in the right lung apex. Prominent degenerative changes of the left shoulder. Remote fracture deformity of the proximal right humerus. Radiologist: Gavin No M.D. Laboratory Results 01/12/17 23:04 Red Blood Count 4.09, Mean Corpuscular Volume 97.8, Mean Corpuscular Hemoglobin 32.0, Mean Corpuscular Hemoglobin Concent 32.8, Mean Platelet Volume 9.6, Neutrophils (%) (Auto) 67.2, Lymphocytes (%) (Auto) 18.1, Monocytes (%) (Auto) 12.9, Eosinophils (%) (Auto) 1.4, Basophils (%) (Auto) 0.2, Neutrophils # (Auto ) 3.80, Lymphocytes # (Auto) 1.02, Monocytes # (Auto) 0.73, Eosinophils # (Auto ) 0.08, Basophils # (Auto) 0.01 01/12/17 23:04 Test 01/12/17 23:04 White Blood Count 5.65 K/uL (4.8-10.8) Red Blood Count 4.09 M/uL (4.2-5.4) Hemoglobin 13.1 g/dL (12.0-16.0) Hematocrit 40.0 % (37-47) Mean Corpuscular Volume 97.8 fL (80-100) Mean Corpuscular Hemoglobin 32.0 pg (25-34) Mean Corpuscular Hemoglobin Concent 32.8 g/dl (32-36) Platelet Count 212 K/uL (130-400) Mean Platelet Volume 9.6 fL (7.4-10.4) Neutrophils (%) (Auto) 67.2 % Lymphocytes (%) (Auto) 18.1 % Monocytes (%) (Auto) 12.9 % Eosinophils (%) (Auto) 1.4 % Basophils (%) (Auto) 0.2 % Neutrophils # (Auto) 3.80 K/uL (1.4-6.5) Lymphocytes # (Auto) 1.02 K/uL (1.2-3.4) Monocytes # (Auto) 0.73 K/uL (0.11-0.59) Eosinophils # (Auto) 0.08 K/uL (0-0.5) Basophils # (Auto) 0.01 K/uL (0-0.2) RDW Standard Deviation 50.3 fL (36.4-46.3) RDW Coefficient of Variation 14.1 % (11.5-14.5) Immature Granulocyte % (Auto) 0.2 % Immature Granulocyte # (Auto) 0.01 K/uL (0.00-0.02) Prothrombin Time 26.7 SECONDS (9.0-12.0) Prothromb Time International Ratio 2.4 (0.9-1.1) Activated Partial Thromboplast Time 40.4 SECONDS (21.0-31.0) Partial Thromboplastin Ratio 1.6 Anion Gap 8.0 mmol/L (3-11) Est Creatinine Clear Calc Drug Dose 29.8 ml/min Estimated GFR () 38.3 Estimated GFR (Non- 33.0 BUN/Creatinine Ratio 22.1 (10-20) Calcium Level 8.3 mg/dl (8.5-10.1) Total Bilirubin 0.3 mg/dl (0.2-1) Direct Bilirubin < 0.1 mg/dl (0-0.2) Aspartate Amino Transf (AST/SGOT) 35 U/L (15-37) Alanine Aminotransferase (ALT/SGPT) 34 U/L (12-78) Alkaline Phosphatase 118 U/L (45-117) Total Creatine Kinase 160 U/L (26-192) Creatine Kinase MB 2.6 ng/ml (0.5-3.6) Creatine Kinase MB Ratio 1.6 (0-3.0) Troponin I < 0.015 ng/ml (0-0.045) Total Protein 6.6 gm/dl (6.4-8.2) Albumin 2.9 gm/dl (3.4-5.0) Laboratory results as stated above per my review. Medications Administered Medications (Trade) Dose Ordered Sig/Dominic Route Start Time Stop Time Status Last Admin Dose Admin Ondansetron HCl (Zofran Inj) 4 mg STK-MED ONCE .ROUTE 01/13/17 00:35 01/13/17 00:36 DC 01/13/17 00:35 4 MG ECG Indication: SOB/dyspnea Rate (beats per minute): 85 Rhythm: normal sinus Findings: no acute ischemic change, no ectopy ED Course 223: Previous medical records were reviewed. The patient was evaluated in room B02. A complete history and physical examination was performed. 0035: Ordered Zofran Injection 4 mg IV. 0110: On reevaluation, the patient is resting comfortably. I discussed the results and findings with the patient. She verbalized agreement of the treatment plan. The patient will be further evaluated. 0124: I discussed the patients case with Dr. Sherly Perrin, [facility] Hospitalist. She understands the patients condition and agrees to accept the patient. The patient will be further evaluated. Medical Decision the differential was considered includes acute myocardial infarction, acute coronary syndrome, myocarditis, pericarditis, pericardial effusions /tamponad, esophageal perforation, pulmonary embolism, pneumonia, pneumothorax, cardiomyopathy, congestive heart, anemia , COPD/asthma exacerbation. This is a 76-year-old female who presents to the ED with a chief complaint of coughing up some blood. The patient had an episode tonight where she was coughing up moderate amount of blood into the toilet. She came in to the ED for evaluation of this. She has a history of lung cancer and is currently on Coumadin and oral chemotherapeutic agents for her cancer. The patient does report a history of PE as well. She denies having any chest pains or shortness of breath. She has not had fevers or recent illness. Her physical exam is noted above. She does have some potential breath sounds in the right side. Her exam was otherwise unremarkable. She is in no respiratory distress or breathing appears to be comfortable. Oxygen saturation is are 96% on room air. CBC is normal, INR is 2.4, BUN is 33 and creatinine is 1.5. Complete metabolic panel was unremarkable and troponin was negative. Chest x-ray looks similar to a previous one with some chronic right-sided changes. A CT scan was performed of the chest and noted as above. This is without cerumen change from a previous CT scan as well. Because the patient is having some persistent hemoptysis, the patient will be seen by the hospitalist for further inpatient observation. She did not take her Coumadin tonight. Medication Reconcilliation Current Medication List: was personally reviewed by me Blood Pressure Screening Patient's blood pressure: Elevated blood pressure Blood pressure disposition: Elevated BP felt to be situational Consults Time Called: 0124 Consulting Physician: Dr. Sherly Perrin [facility] Hospitalist Returned Call: 0124 I discussed the patients case with Dr. Sherly Perrin [facility] Hospitalist. She understands the patients condition and agrees to accept the patient. The patient will be further evaluated. Impression Primary Impression: Hemoptysis Scribe Attestation The scribe's documentation has been prepared under my direction and personally reviewed by me in its entirety. I confirm that the note above accurately reflects all work, treatment, procedures, and medical decision making performed by me. Departure Information Dispostion Being Evaluated By Hospitalist Referrals ,Shiv Workman M.D. (PCP) Patient Instructions My [facility]
[2017-01-13] MEDS ORDERED: ONDANSETRON INJ 2 MG/ML 2 ML VIAL IV PRN (03:00)
[2017-01-13] MEDS ORDERED: NITROGLYCERIN 0.4 MG SL PER TAB CHARGE SL PRN (03:00)
[2017-01-13] MEDS ORDERED: FUROSEMIDE 20 MG TAB PO PRN (03:00)
[2017-01-13] MEDS ORDERED: ALBUT/IPRATROP 3MG/0.5MG NEB 3 ML VIAL INH PRN (03:00)
[2017-01-13] MEDS ORDERED: LOPERAMIDE HCL 2 MG CAP PO PRN (03:00)
[2017-01-13] MEDS ORDERED: MAGNESIUM HYDROXIDE SUSP 30 ML UDC PO PRN (03:00)
[2017-01-13] MEDS ORDERED: POLYETHYLENE (MIRALAX) 17 GM PACK PO PRN (03:00)
[2017-01-13] MEDS ORDERED: ALUMINUM/MAGNESIUM/SIMETH (MAALOX MAX) 30 ML UDC PO PRN (03:00)
[2017-01-13] MEDS ORDERED: ACETAMINOPHEN 325 MG TAB PO PRN (03:00)
--- NOTE | 2017-01-13 03:05 | History and Physical ---
History & Physical Date & Time of Service: Jan 13, 2017 at 02:30 Chief Complaint: Spitting Up Gobs Of Blood Primary Care Physician: Shiv Langston M.D. History of Present Illness Source: patient, hospital records Non smoking patient with lung cancer currently undergoing radiation and chemotherapy presented with production of blood including clots this past evening during a random coughing episode caused by a sensation of something in her throat. She states that she had this episode three times, before her cough settled, without medication Next cough was post CT scan with further production of blood. Denies symptoms of anemia: No dizziness or lightheadedness, changes in exercise tolerance. Does feel fatigued. No URTI symptoms otherwise, no fevers, no CP or SOB. Denies blood in urine or stool, no epistaxis or bruising. No similar previous episode Patient has been on warfarin for PE (2 years ago) and DVT and in carotid clots due to previous port. She is able to maintain her INR between 2-3 Denies recent changes to diet. Does not drink alcohol since commencing chemotherapeutic medication. Constant swelling in extremities from cancer medication, as well as some kidney damage Tolerating diet. Last BM, does not feel constipated. Deals with IBS like symptoms due to chemo meds. Past Medical/Surgical History Medical Problems: (1) Adenocarcinoma of lung Status: Chronic (2) History of cholecystectomy Status: Resolved (3) Subclavian vein thrombosis Status: Resolved Surgical Problems: (1) H/O: hysterectomy Status: Resolved (2) History of thoracotomy Status: Resolved Family History Patient reports no known family medical history. Social History Smoking Status: Never Smoker Smokeless Tobacco Use: No Alcohol Use: none Drug Use: none Marital Status: Housing status: lives with family Occupational Status: retired Immunizations History of Influenza Vaccine: Yes History of Tetanus Vaccine?: utd Tetanus Immunization Date: July 21, 2005 History of Pneumococcal: Yes Pneumococcal Date: Dec 21, 2010 History of Hepatitis B Vaccine: Unknown Multi-Drug Resistant Organisms History of MDRO: No Allergies Coded Allergies: Morphine (Verified Allergy, Severe, SHORTNESS OF BREATH, 01/12/17) Iodinated Diagnostic Agents (Verified Adverse Reaction, Intermediate, GI Sx - constrast media, 01/12/17) Codeine (Verified Adverse Reaction, Mild, VOMITING, 01/12/17) Home Medications Scheduled Cholecalciferol (Vitamin D3), 2,000 UNITS PO DAILY Crizotinib (Xalkori), 200 MG PO BID Psyllium (Metamucil), 1 TSP PO BID Warfarin Sod (Coumadin), 2.5 MG PO 6XWK Warfarin Sod (Coumadin), 3.75 MG PO WK Scheduled PRN Furosemide (Lasix), 20 MG PO DAILY PRN for Edema Ipratropium-Albuterol (Duoneb), 1 TREATMENT INH Q4H PRN for SOB/Wheezing Loperamide Hcl (Imodium), 2 MG PO UD PRN for Diarrhea Review of Systems Constitutional: No fever, No chills, No sweats, No weight loss ENT: No unusual epistaxis, No nasal symptoms, No sore throat Respiratory: + hemoptysis, No cough, No wheezing, No dyspnea on exertion ( chronic) Cardiovascular: + edema (all 5 extemities), No chest pain, No orthopnea, No PND , No palpitations Abdomen: + diarrhea, + constipation, No pain, No nausea, No vomiting, No GI bleeding Genitourinary - Female: No dysuria, No urinary frequency, No urinary urgency, No urinary incontinence, No urinary retention, No hematuria Neurologic: No numbness/tingling, No balance problems Hematologic / Lymphatic: No abnormal bleeding/bruising, No night sweats Integumentary: No rash, No itch Allergic / Immunologic: No environmental allergies, No seasonal allergies, No pet sensitivities, No food allergies Physical Exam Vital Signs Date Time Temp Pulse Resp B/P (MAP) Pulse Ox O2 Delivery O2 Flow Rate FiO2 01/13/17 00:48 89 18 142/76 98 Room Air 01/12/17 22:38 94 01/12/17 22:27 36.8 95 18 151/80 97 Room Air General Appearance: WD/WN, no apparent distress Head: normocephalic, atraumatic Eyes: normal inspection, sclerae normal ENT: hearing grossly normal, pharynx normal Neck: supple, no adenopathy, no JVD Respiratory/Chest: lungs clear, normal breath sounds, no respiratory distress, no accessory muscle use, + decreased breath sounds Cardiovascular: regular rate, rhythm, no edema, no murmur, normal peripheral pulses Abdomen/GI: normal bowel sounds, non tender, soft Back: normal inspection, no CVA tenderness, no muscle spasm Extremities/Musculoskelatal: no calf tenderness, normal capillary refill, + pedal edema, + swelling (to mid snyder ad in hands bilaterally) Neurologic/Psych: alert, normal mood/affect, oriented x 3 Skin: normal color, warm/dry, no rash Diagnostics Laboratory Results Results Past 24 Hours Test 01/12/17 23:04 Range/Units White Blood Count 5.65 4.8-10.8 K/uL Red Blood Count 4.09 4.2-5.4 M/uL Hemoglobin 13.1 12.0-16.0 g/dL Hematocrit 40.0 37-47 % Mean Corpuscular Volume 97.8 80-100 fL Mean Corpuscular Hemoglobin 32.0 25-34 pg Mean Corpuscular Hemoglobin Concent 32.8 32-36 g/dl Platelet Count 212 130-400 K/uL Mean Platelet Volume 9.6 7.4-10.4 fL Neutrophils (%) (Auto) 67.2 % Lymphocytes (%) (Auto) 18.1 % Monocytes (%) (Auto) 12.9 % Eosinophils (%) (Auto) 1.4 % Basophils (%) (Auto) 0.2 % Neutrophils # (Auto) 3.80 1.4-6.5 K/uL Lymphocytes # (Auto) 1.02 1.2-3.4 K/uL Monocytes # (Auto) 0.73 0.11-0.59 K/uL Eosinophils # (Auto) 0.08 0-0.5 K/uL Basophils # (Auto) 0.01 0-0.2 K/uL RDW Standard Deviation 50.3 36.4-46.3 fL RDW Coefficient of Variation 14.1 11.5-14.5 % Immature Granulocyte % (Auto) 0.2 % Immature Granulocyte # (Auto) 0.01 0.00-0.02 K/uL Prothrombin Time 26.7 9.0-12.0 SECONDS Prothromb Time International Ratio 2.4 0.9-1.1 Activated Partial Thromboplast Time 40.4 21.0-31.0 SECONDS Partial Thromboplastin Ratio 1.6 Sodium Level 143 136-145 mmol/L Potassium Level 4.5 3.5-5.1 mmol/L Chloride Level 112 98-107 mmol/L Carbon Dioxide Level 23 21-32 mmol/L Anion Gap 8.0 3-11 mmol/L Blood Urea Nitrogen 33 7-18 mg/dl Creatinine 1.50 0.60-1.20 mg/dl Est Creatinine Clear Calc Drug Dose 29.8 ml/min Estimated GFR () 38.3 Estimated GFR (Non- 33.0 BUN/Creatinine Ratio 22.1 10-20 Random Glucose 112 70-99 mg/dl Calcium Level 8.3 8.5-10.1 mg/dl Total Bilirubin 0.3 0.2-1 mg/dl Direct Bilirubin < 0.1 0-0.2 mg/dl Aspartate Amino Transf (AST/SGOT) 35 15-37 U/L Alanine Aminotransferase (ALT/SGPT) 34 12-78 U/L Alkaline Phosphatase 118 45-117 U/L Total Creatine Kinase 160 26-192 U/L Creatine Kinase MB 2.6 0.5-3.6 ng/ml Creatine Kinase MB Ratio 1.6 0-3.0 Troponin I < 0.015 0-0.045 ng/ml Total Protein 6.6 6.4-8.2 gm/dl Albumin 2.9 3.4-5.0 gm/dl Impression Assessment and Plan 76 year old female with lung cancer on chemo and radiation therapy presents with hemoptysis Hemoptysis - CT PA negative for clots, more likely to be due to ?ulcerating primary cancer - Warfarin reversed with 10mg vitamin K to minimize subsequent blood loss - Trend CBC - Pulmonology consulted H/o PE/DVT - Silvia warfarin - Daily INR Lung cancer - Seen by Dr. Glover and Lidia Gonzalez VTE PPx - Chemical anticoagulation contraindicated - Gemini PEDROZA Attending addendum: I have physically seen this patient, have supervised the medical residents activities, and agree with the H&P unless as otherwise noted. Assessment and Plan: Hemoptysis/lung cancer/PE/DVT/chronic anticoagulation-- Reverse INR with vitamin K 10 mg IV, and repeat INR. H&H every 6 hours. Nothing by mouth after midnight. Consult pulmonology for possible bronchoscopy Consult Dr. Glover from oncology Level of Care Telemetry Advanced Directives Existing Power of Bottle Caser: No Resuscitation Status FULL RESUSCITATION VTE Prophylaxis VTE Risk Assessment Done? Y/N: Yes Risk Level: Moderate Given or contraindicated: T.E.Ranulfo Stockings, SCD's Social Service Consult Cancer Patient Under [place] Resident Tracking Resident Involvement: Resident Care Provided Care Provided: Adult Hospital Medicine
[2017-01-13] MEDS ORDERED: IV FLUIDS COMPLETED PRN (05:00)
[2017-01-13 07:21] LABS: BASO % 0.2 %; BASO ABS # 0.01 K/uL (0-0.2); COMPLETE YES; EOS % 0.5 %; HEMATOCRIT 36.8 % (37-47); IG% 0.3 %; LYMPH % 17.5 %; LYMPH ABS # 1.01 K/uL (1.2-3.4); MEAN CELL VOLUME 97.6 fL (80-100); MEAN CORPUSCULAR HEMOGLOBIN 32.1 pg (25-34); MEAN CORPUSCULAR HGB CONC 32.9 g/dl (32-36); MEAN PLATELET VOLUME 9.6 fL (7.4-10.4); MONO % 13.3 %; NEUT % 68.2 %; PLATELET COUNT 186 K/uL (130-400); RED BLOOD COUNT 3.77 M/uL (4.2-5.4); WHITE BLOOD COUNT 5.78 K/uL (4.8-10.8)
[2017-01-13 07:33] LABS: INR 1.6 (0.9-1.1); PARTIAL THROMBOPLASTIN RATIO 1.3; PROTHROMBIN TIME (PATIENT) 17.1 SECONDS (9.0-12.0)
--- NOTE | 2017-01-13 07:40 | DIAGNOSTIC IMAGING REPORT ---
CT ANGIOGRAM OF THE CHEST CLINICAL HISTORY: Cough and dyspnea. Hemoptysis. Lung cancer. COMPARISON STUDY: Chest x-ray dated 01/12/2017. Chest CT scans dated 11/21/2016 and 10/23/2011. TECHNIQUE: Following the IV administration of 7 the cc of Optiray 320, CT angiogram of the chest was performed from the upper abdomen to the thoracic inlet utilizing the pulmonary embolus protocol. Images are reviewed in the axial, sagittal, and coronal planes. 3-D MIPS images are created and assessed. IV contrast was administered without complication. A dose lowering technique was utilized adhering to the principles of ALARA. The examination is degraded by streak artifact from the patient's arms which could not be elevated above the chest. The examination is also modestly degraded by motion. CT DOSE: 328.55 mGy.cm FINDINGS: Thyroid: Imaged portions of the thyroid gland are normal in size and attenuation. Thoracic aorta: The thoracic aorta is normal in caliber and demonstrates standard 3-vessel arch anatomy. No dissection is seen. Pulmonary vasculature: The pulmonary trunk is normal in caliber. There are no filling defects identified in main, lobar, or segmental pulmonary branches to suggest pulmonary embolus. Heart: The heart is normal in size and configuration, and without pericardial effusion. Lungs and pleural spaces: There is postoperative change and volume loss identified in the right lung. There is compensatory hypertrophy of the left lung. Dense fibrosis involving the perihilar region and in the right lower lobe is similar to previous and likely treatment related. There is no evidence of superimposed airspace consolidation to indicate pneumonia. Trace pleural fluid is seen at the right lung base. The trachea is clear. A 7 mm left apical pulmonary nodule on image #236 as well as irregular groundglass change at the right apex seen on image #225 are similar to previous. No new pulmonary lesion is suspected. Mediastinum: There is rightward shift of the mediastinum. No mediastinal lymphadenopathy is seen. Liya: Clear. Axillae: There is no axillary lymphadenopathy. Upper abdomen: Cholecystectomy clips are noted. There is a small hiatal hernia. The partially imaged kidneys demonstrate cortical atrophy. Skeletal structures: The skeletal structures are osteopenic. Degenerative change and hyperkyphosis are noted in the thoracic spine. Advanced arthritic change is noted in the shoulders. No lytic or blastic bony lesions are seen. There is chronic posttraumatic deformity of the right proximal humerus. Posttreatment change is suggested in the right posterior ribs. IMPRESSION: 1. There is no evidence of pulmonary embolus in the main, lobar, or segmental pulmonary arteries. 2. Postoperative change and dense fibrosis in the right lung is similar to previous and likely treatment related. 3. There is no evidence of superimposed airspace consolidation. 4. A left apical nodule and groundglass change at the right apex are similar to previous. 5. Additional findings as above. Electronically signed by: Jesus Curtis M.D. 01/13/2017 7:39 AM Dictated Date/Time: 01/13/2017 7:30 AM
[2017-01-13 07:53] LABS: BUN/CREATININE RATIO 21.2 (10-20); CALCIUM 8.4 mg/dl (8.5-10.1); CREATININE 1.34 mg/dl (0.60-1.20); POTASSIUM 4.9 mmol/L (3.5-5.1)
[2017-01-13] MEDS: BENZONATATE 100MG CAP PO SCH ×3 (08:14→20:37)
[2017-01-13] MEDS: PSYLLIUM 58.6% PWD PACK S\\F PO SCH ×2 (08:15→20:37)
[2017-01-13] MEDS: CHOLECALCIFEROL 1000 INTER.UNIT TAB PO SCH (08:17)
--- NOTE | 2017-01-13 08:40 | PULMONARY CONSULTATION ---
DATE OF CONSULTATION: 01/13/2017 TIME: 07:20 a.m. REPORT OF CONSULTATION: The patient was seen in room #233. She is a 76-year-old female who is well known to me. She presented to the Emergency Room last evening with hemoptysis. This began quite suddenly about 10:00 p.m. She had been feeling fine with no symptoms. She thought 3 or 4 days ago that she was getting a cold, but it did not really carrizales out. She typically does not have any significant cough. She denies shortness of breath except with significant exertion, even though she does have markedly abnormal pulmonary functions. At about 10:00 p.m., she started spontaneously to bring up what she describes as some gobs of mucus containing some bright red and dark red blood. She has an extensive history. In 2008, she was diagnosed with non-small cell lung cancer. She went to [facility], where they did a thoracotomy, but they found such extensive disease. They did not resect anything according to the patient. She was treated with some chemotherapy and some radiation therapy. 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 She had some laser therapy at some point in time. In 2011, she had hemoptysis. She states it was small quantities. Bronchoscopy showed recurrence. She had more radiation. 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 At some point in time, she had a pulmonary embolism. She initially had been on Lovenox, but was then switched to Coumadin. She developed problems from having a PICC line in place. She states after that was removed, she did not have problems. In 2012, she was found to have a PET scan abnormality involving the right paratracheal lymph nodes. Ultimately, she had a transbronchial needle aspirate that was positive and showed evidence of a positive ALK receptor. In 2013, she was started on Xalkori and she remains on that. Somewhere along the line, she also had brachytherapy. The patient admits to having nausea at the time of this episode of hemoptysis. She feels convinced she was not vomiting blood, however. She did not have a nosebleed. She is not having any chest pains. She denies recent chills, fevers or sweats. She had a CAT scan of the chest done overnight. As per the ER note, this reports no pulmonary embolism, no aortic aneurysm or dissection, stable area of mass or atelectasis with a band-like pattern from the hilum to the pleural surface on the right, predominantly involving the right lower lobe. There is stable soft tissue thickening surrounding the right main bronchus. She has a stable 6-mm nodule in the left lung apex. She had previously had a CAT scan done in November. She has been followed regularly by Dr. Glover. PAST SURGICAL HISTORY: 1. Thoracotomy in 2008 as noted above. 2. Cholecystectomy. 3. Hysterectomy. 4. Fractured right humerus -- uncertain if the surgery done. 5. Left wrist fracture -- uncertain if she had surgery. PAST MEDICAL HISTORY: 1. Hypertension. 2. Pulmonary embolism. 3. Lung CA as noted. 4. Subclavian thrombosis. 5. Bronchiectasis. 6. Chronic obstructive pulmonary disease. SOCIAL HISTORY: Tobacco never. ETOH -- occasional. ALLERGIES: SHE HAS SIDE EFFECTS TO NUMEROUS MEDICINES BUT NOT TRUE ALLERGIES. CAT SCAN DYE ALWAYS MAKES HER VERY NAUSEATED. CODEINE MAKES HER NAUSEATED. SHE HAD SOME REACTION TO MORPHINE, BUT IT WAS NOT CLEAR EXACTLY WHAT IT WAS. FAMILY HISTORY: The patient comes from a family of marked longevity. Her mother at age 94 and father at age 102. There are 2 other relatives to survive past age 100. MEDICATIONS: At home, 1. Cholecalciferol 2000 units daily. 2. Xalkori 200 mg b.i.d. 3. Lasix 20 mg p.r.n. 4. Neb treatments p.r.n. only. 5. Imodium 2 mg p.r.n. 6. Metamucil b.i.d. 7. Coumadin 2.5 mg daily except 3.75 mg on Wednesdays. REVIEW OF SYSTEMS: Negative except for the above-mentioned complaints. The patient overall has been feeling very well. She is not losing any weight. Her energy level is still good. She is upset because she is supposed to have bridge constitution party today. She remains extremely active. She walks regularly. Ten systems reviewed. PHYSICAL EXAMINATION: GENERAL: The patient is a pleasant 76-year-old female who was cooperative, alert and oriented. She was in no distress at rest. VITAL SIGNS: Temperature is 36.8. The heart rate is 95 per minute. The rhythm is regular. Blood pressure is 151/75. HEENT: Eye exam suggested prior cataract surgery bilaterally. Nares were clear. Mouth exam showed no blood in the posterior pharynx and no significant abnormality. NECK: Palpation of the neck reveals no lymph nodes. CHEST: Inspection of the chest reveals a large scar on the right lateral and posterior chest from the prior thoracotomy. LUNGS: Respiratory rate was 18 breaths per minute. She has diminished breath sounds in the right mid and lower lung field. There are just a few scattered rales heard on the right. Oxygen saturation on room air was 94%. ABDOMEN: Soft. Bowel sounds were present. There was no tenderness to palpation or masses. EXTREMITIES: Reveal no edema of all 4 extremities. She states this is related to the Xalkori. There was no cyanosis or clubbing. The patient did have a chest x-ray done that looks similar to a prior x-ray on 07/24/2016 and correlated with the above-mentioned CAT scan results. LABORATORY DATA: White blood cell count is 5.65. Hemoglobin 13.1. Platelets 212,000. INR is 2.4 and PTT is 40.4. Electrolytes show sodium 143, potassium 4.5, chloride 112, and bicarbonate 23. BUN 33 with a creatinine of 1.5. Calcium is 8.3. AST is normal at 35. ALT is normal at 34. Alkaline phosphatase is elevated at 118. Albumin was 2.9 and total protein 6.6. Troponin was negative. IMPRESSION: 1. Hemoptysis -- etiology to be determined. 2. Lung cancer - non-small cell -- stage III -- status post radiation therapy, chemotherapy, brachytherapy, and currently on Xalkori. 3. Chronic obstructive pulmonary disease. 4. Bronchiectasis. 5. History of pulmonary embolism and deep venous thrombosis. COMMENTS: The patient should be observed. I am going to collect one sputum sample for cytology and then we will collect all the rest of her sputum to quantify how much she has bleeding. I would anticipate that she would get bronchoscope tomorrow. Would hold off on her Coumadin for now. RECOMMENDATIONS: 1. Tentative bronchoscopy for tomorrow. 2. Keep n.p.o. after midnight. 3. We will order Tessalon to try and suppress her cough. 4. Sputum cytology. 5. Collect all sputum to quantitate the amount of bleeding. [facility]
--- NOTE | 2017-01-13 08:50 | DIAGNOSTIC IMAGING REPORT ---
SINGLE VIEW CHEST CLINICAL HISTORY: GI bleeding. Lung cancer. FINDINGS: An AP, portable, upright chest radiograph is compared to study dated 07/24/2016 and correlated with chest CT dated 11/21/2016. The examination is degraded by portable technique and patient rotation. The cardiomediastinal silhouette is unremarkable. There is rightward shift of mediastinum. Postoperative change in the right lung and fibrotic change in the right lower lung is similar to prior studies. The left lung is grossly clear. A trace right pleural effusion is not excluded. No pneumothorax is seen. The skeletal structures are osteopenic. Advanced arthritic change is seen in the shoulders. There is chronic posttraumatic deformity of the right humerus. Cholecystectomy clips are noted. IMPRESSION: 1. Postoperative change and fibrosis in the right lower lung is similar to prior studies. 2. No acute cardiopulmonary abnormality is seen. Electronically signed by: Jesus Curtis M.D. 01/13/2017 8:49 AM Dictated Date/Time: 01/13/2017 8:47 AM
--- NOTE | 2017-01-13 12:53 | Family Medicine Progress Note ---
Progress Note Date of Service Jan 13, 2017. Subjective Pt evaluation today including: conversation w/ patient, physical exam, chart review, lab review, review of studies Pain: Denies any pain Voiding: no voiding problems, no incontinence Patient is resting comfortably in bed this morning with no acute complaints. She states that she has 3 episodes for coughing up significant amounts of blood into her toilet yesterday evening and another episode after her CT scan that was seen by Dr. Rao and told looked approximately like a unit of blood. She has not acute complaints and has not coughed up blood since. Constitutional: No fever, No chills, No fatigue Respiratory: No cough, No sputum, No wheezing, No shortness of breath, No dyspnea on exertion, No dyspnea at rest Cardiovascular: No chest pain, No palpitations Abdomen: No pain, No nausea, No vomiting, No diarrhea, No constipation Medications Current Inpatient Medications Medications (Trade) Dose Ordered Sig/Dominic Route Start Time Stop Time Status Last Admin Dose Admin Ioversol (Optiray 320) 100 ml UD PRN IV 01/12/17 23:45 01/16/17 23:44 Acetaminophen (Tylenol Tab) 650 mg Q4H PRN PO 01/13/17 03:00 02/12/17 02:59 Al Hydrox/Mg Hydrox/Simethicone (Maalox Max Susp) 15 ml Q4H PRN PO 01/13/17 03:00 02/12/17 02:59 Magnesium Hydroxide (Milk Of Magnesia Susp) 30 ml Q12H PRN PO 01/13/17 03:00 02/12/17 02:59 Ondansetron HCl (Zofran Inj) 4 mg Q6H PRN IV 01/13/17 03:00 02/12/17 02:59 Nitroglycerin (Nitrostat Tab) 0.4 mg UD PRN SL 01/13/17 03:00 02/12/17 02:59 Polyethylene (Miralax Powder Packet) 17 gm DAILY PRN PO 01/13/17 03:00 02/12/17 02:59 Cholecalciferol (Vitamin D Tab) 2,000 inter.unit DAILY PO 01/13/17 09:00 02/12/17 08:59 01/13/17 08:17 2,000 INTER.UNIT Furosemide (Lasix Tab) 20 mg DAILY PRN PO 01/13/17 03:00 02/12/17 02:59 Albuterol/ Ipratropium (Duoneb) 3 ml Q4H PRN INH 01/13/17 03:00 02/12/17 02:59 Loperamide HCl (Imodium Cap) 2 mg PRN PRN PO 01/13/17 03:00 02/12/17 02:59 Miscellaneous Information (Order Awaiting Action) 1 ea QS N/A 01/13/17 08:00 02/12/17 07:59 01/13/17 08:24 1 EA Psyllium Hydrophilic Mucilloid (Metamucil Powder) 1 pkt BID PO 01/13/17 09:00 02/12/17 08:59 01/13/17 08:15 1 PKT Miscellaneous (Iv Fluids Completed) 1 ea PRN PRN N/A 01/13/17 05:00 01/13/18 04:59 Benzonatate (Tessalon Perles Cap) 100 mg TID PO 01/13/17 09:00 02/12/17 08:59 01/13/17 08:14 100 MG Crizotinib (Xalkori) 200 mg BID PO 01/13/17 21:00 02/12/17 20:59 Objective Vital Signs Date Time Temp Pulse Resp B/P (MAP) Pulse Ox O2 Delivery O2 Flow Rate FiO2 01/13/17 12:00 Room Air 01/13/17 11:21 36.6 71 18 126/75 (92) 94 Room Air 01/13/17 08:34 36.5 79 18 122/71 (88) 95 Room Air 01/13/17 08:00 Room Air 01/13/17 04:00 36.8 95 18 151/75 94 Room Air 01/13/17 03:31 82 18 129/60 94 01/13/17 01:30 85 17 153/88 96 01/13/17 01:00 86 22 151/63 97 01/13/17 00:48 89 18 142/76 98 Room Air 01/12/17 22:38 94 01/12/17 22:27 36.8 95 18 151/80 97 Room Air Physical Exam General Appearance: WD/WN, no apparent distress Eyes: normal inspection, sclerae normal Neck: supple, trachea midline Respiratory/Chest: chest non-tender, no accessory muscle use, + rales (over the right side) Cardiovascular: regular rate, rhythm, no edema, no gallop Abdomen: normal bowel sounds, non tender, soft Neurologic/Psychiatric: alert, normal mood/affect, oriented x 3 Laboratory Results Results Past 24 Hours Test 01/12/17 23:04 01/13/17 06:46 Range/Units White Blood Count 5.65 5.78 4.8-10.8 K/uL Red Blood Count 4.09 3.77 4.2-5.4 M/uL Hemoglobin 13.1 12.1 12.0-16.0 g/dL Hematocrit 40.0 36.8 37-47 % Mean Corpuscular Volume 97.8 97.6 80-100 fL Mean Corpuscular Hemoglobin 32.0 32.1 25-34 pg Mean Corpuscular Hemoglobin Concent 32.8 32.9 32-36 g/dl Platelet Count 212 186 130-400 K/uL Mean Platelet Volume 9.6 9.6 7.4-10.4 fL Neutrophils (%) (Auto) 67.2 68.2 % Lymphocytes (%) (Auto) 18.1 17.5 % Monocytes (%) (Auto) 12.9 13.3 % Eosinophils (%) (Auto) 1.4 0.5 % Basophils (%) (Auto) 0.2 0.2 % Neutrophils # (Auto) 3.80 3.94 1.4-6.5 K/uL Lymphocytes # (Auto) 1.02 1.01 1.2-3.4 K/uL Monocytes # (Auto) 0.73 0.77 0.11-0.59 K/uL Eosinophils # (Auto) 0.08 0.03 0-0.5 K/uL Basophils # (Auto) 0.01 0.01 0-0.2 K/uL RDW Standard Deviation 50.3 50.6 36.4-46.3 fL RDW Coefficient of Variation 14.1 14.3 11.5-14.5 % Immature Granulocyte % (Auto) 0.2 0.3 % Immature Granulocyte # (Auto) 0.01 0.02 0.00-0.02 K/uL Prothrombin Time 26.7 17.1 9.0-12.0 SECONDS Prothromb Time International Ratio 2.4 1.6 0.9-1.1 Activated Partial Thromboplast Time 40.4 34.1 21.0-31.0 SECONDS Partial Thromboplastin Ratio 1.6 1.3 Sodium Level 143 142 136-145 mmol/L Potassium Level 4.5 4.9 3.5-5.1 mmol/L Chloride Level 112 112 98-107 mmol/L Carbon Dioxide Level 23 24 21-32 mmol/L Anion Gap 8.0 6.0 3-11 mmol/L Blood Urea Nitrogen 33 28 7-18 mg/dl Creatinine 1.50 1.34 0.60-1.20 mg/dl Est Creatinine Clear Calc Drug Dose 29.8 32.4 ml/min Estimated GFR () 38.3 43.9 Estimated GFR (Non- 33.0 37.9 BUN/Creatinine Ratio 22.1 21.2 10-20 Random Glucose 112 92 70-99 mg/dl Calcium Level 8.3 8.4 8.5-10.1 mg/dl Total Bilirubin 0.3 0.2-1 mg/dl Direct Bilirubin < 0.1 0-0.2 mg/dl Aspartate Amino Transf (AST/SGOT) 35 15-37 U/L Alanine Aminotransferase (ALT/SGPT) 34 12-78 U/L Alkaline Phosphatase 118 45-117 U/L Total Creatine Kinase 160 26-192 U/L Creatine Kinase MB 2.6 0.5-3.6 ng/ml Creatine Kinase MB Ratio 1.6 0-3.0 Troponin I < 0.015 0-0.045 ng/ml Total Protein 6.6 6.4-8.2 gm/dl Albumin 2.9 3.4-5.0 gm/dl Assessment and Plan Patient is a 76 year old female with lung cancer currently Crizotinib and pulmonary embolisms 2 years ago currently anticoagulated with coumadin that presented with multiple episodes of hemoptysis. She is currently resting comfortably in bed with no acute complaints this morning or repeated episodes of hemoptysis. On admission was given 10mg IV Vitamin K and her INR this morning is 1.6. She was seen by Dr. Key who follows her for her lung cancer along with Dr. Elam, and determined that he will tentatively take her for a bronchoscopy tomorrow. Will hold Coumadin for the time being and continue to monitor his INR. Will be NPO after midnight. After bronch tomorrow will reassess and determine further treatment necessities. Otherwise patient is stable at this time and will continue to monitor H/H until patient taken tomorrow for her bronch. Resident Physician Supervision Note: I was present with Dr. Naidu during the history and exam. I discussed the case with the resident and agree with the findings and plan as documented in the note. I also discussed the case with Dr. Key. Documented By: Loc Rodriguez
[2017-01-13] MEDS ORDERED: PHYTONADIONE INJ 5 MG in SODIUM CHLORIDE 0.9% 50ML 50 ML IV ONE (15:00)
--- NOTE | 2017-01-13 18:50 | Critical Care Consultation ---
Critical Care Consultation Date of Consultation: Jan 13, 2017. Attending Physician: Koby Temple M.D. Reason for Consultation: Large hemoptysis in the setting of adenocarcinoma of the lung. History of Present Illness I personally examined this patient, reviewed her clinical and laboratory data, interpreted as CT scan of the chest and form completed for the plan of care. In summary, the patient is a 76 year old nonsmoker female with adenocarcinoma undergoing radiation and chemotherapy who developed massive hemoptysis last night at 10 PM. She is fully anticoagulated with Coumadin for history of pulmonary embolism. She presented to emergency room. Patient developed another episode of large hemoptysis following the CT scan which did not reveal any pulmonary embolus, just postoperative change and dense fibrosis in the right lung similar to previous. There was no airspace consolidation. Left apical nodule and groundglass change at the right apex was similar to previous. Her coagulopathy was reversed with vitamin K with INR going down from 2.4-1.6. This morning at 11 AM patient developed another episode of large hemoptysis. She was transferred critically ill to the surgical intensive care unit for airway monitoring. Otherwise, patient denies having any chest pain, fever, chills, chronic cough, any signs of upper respiratory tract infection. She denies any abdominal pain. She denies taking NSAID's , aspirin or Plavix. Past Medical/Surgical History Adenocarcinoma of the lung undergoing chemotherapy and radiation therapy Cholecystectomy Subclavian vein thrombosis Hysterectomy Family History Patient reports no known family medical history. Social History Smoking Status: Never Smoker Smokeless Tobacco Use: No Alcohol Use: none Drug Use: none Marital Status: Housing Status: lives with family Occupation Status: retired Allergies Coded Allergies: Morphine (Verified Allergy, Severe, SHORTNESS OF BREATH, 01/12/17) Iodinated Diagnostic Agents (Verified Adverse Reaction, Intermediate, GI Sx - constrast media, 01/12/17) Codeine (Verified Adverse Reaction, Mild, VOMITING, 01/12/17) Home Medications Scheduled Cholecalciferol (Vitamin D3), 2,000 UNITS PO DAILY Crizotinib (Xalkori), 200 MG PO BID Psyllium (Metamucil), 1 TSP PO BID Warfarin Sod (Coumadin), 2.5 MG PO [id number] Warfarin Sod (Coumadin), 3.75 MG PO WK Scheduled PRN Furosemide (Lasix), 20 MG PO DAILY PRN for Edema Ipratropium-Albuterol (Duoneb), 1 TREATMENT INH Q4H PRN for SOB/Wheezing Loperamide Hcl (Imodium), 2 MG PO UD PRN for Diarrhea Current Inpatient Medications Current Inpatient Medications Medications (Trade) Dose Ordered Sig/Dominic Route Start Time Stop Time Status Last Admin Dose Admin Ioversol (Optiray 320) 100 ml UD PRN IV 01/12/17 23:45 01/16/17 23:44 Acetaminophen (Tylenol Tab) 650 mg Q4H PRN PO 01/13/17 03:00 02/12/17 02:59 Al Hydrox/Mg Hydrox/Simethicone (Maalox Max Susp) 15 ml Q4H PRN PO 01/13/17 03:00 02/12/17 02:59 Magnesium Hydroxide (Milk Of Magnesia Susp) 30 ml Q12H PRN PO 01/13/17 03:00 02/12/17 02:59 Ondansetron HCl (Zofran Inj) 4 mg Q6H PRN IV 01/13/17 03:00 02/12/17 02:59 Nitroglycerin (Nitrostat Tab) 0.4 mg UD PRN SL 01/13/17 03:00 02/12/17 02:59 Polyethylene (Miralax Powder Packet) 17 gm DAILY PRN PO 01/13/17 03:00 02/12/17 02:59 Cholecalciferol (Vitamin D Tab) 2,000 inter.unit DAILY PO 01/13/17 09:00 02/12/17 08:59 01/13/17 08:17 2,000 INTER.UNIT Furosemide (Lasix Tab) 20 mg DAILY PRN PO 01/13/17 03:00 02/12/17 02:59 Albuterol/ Ipratropium (Duoneb) 3 ml Q4H PRN INH 01/13/17 03:00 02/12/17 02:59 Loperamide HCl (Imodium Cap) 2 mg PRN PRN PO 01/13/17 03:00 02/12/17 02:59 Miscellaneous Information (Order Awaiting Action) 1 ea QS N/A 01/13/17 08:00 02/12/17 07:59 01/13/17 15:04 1 EA Psyllium Hydrophilic Mucilloid (Metamucil Powder) 1 pkt BID PO 01/13/17 09:00 02/12/17 08:59 01/13/17 08:15 1 PKT Miscellaneous (Iv Fluids Completed) 1 ea PRN PRN N/A 01/13/17 05:00 01/13/18 04:59 Benzonatate (Tessalon Perles Cap) 100 mg TID PO 01/13/17 09:00 02/12/17 08:59 01/13/17 14:16 100 MG Crizotinib (Xalkori) 200 mg BID PO 01/13/17 21:00 02/12/17 20:59 Review of Systems Respiratory: + hemoptysis Physical Exam Date Time Temp Pulse Resp B/P (MAP) Pulse Ox O2 Delivery O2 Flow Rate FiO2 01/13/17 18:00 78 18 111/60 (77) 97 Room Air 01/13/17 16:00 97 Room Air 01/13/17 16:00 36.8 75 20 115/64 (81) 97 Room Air 01/13/17 12:00 Room Air 01/13/17 11:21 36.6 71 18 126/75 (92) 94 Room Air 01/13/17 08:34 36.5 79 18 122/71 (88) 95 Room Air 01/13/17 08:00 Room Air 01/13/17 04:00 36.8 95 18 151/75 94 Room Air 01/13/17 03:31 82 18 129/60 94 01/13/17 01:30 85 17 153/88 96 01/13/17 01:00 86 22 151/63 97 01/13/17 00:48 89 18 142/76 98 Room Air 01/12/17 22:38 94 01/12/17 22:27 36.8 95 18 151/80 97 Room Air General Appearance: WD/WN, no apparent distress, pleasant elderly female Head: normocephalic, atraumatic Eyes: normal inspection, sclerae normal ENT: hearing grossly normal, pharynx normal Neck: supple, no adenopathy, no JVD Respiratory/Chest: lungs clear, normal breath sounds, no respiratory distress, no accessory muscle use, bronchial breath sounds at the bases, scattered rhonchi , no crackles. Cardiovascular: regular rate, rhythm, no edema, no murmur, normal peripheral pulses Abdomen/GI: normal bowel sounds, non tender, soft no epigastric tenderness. Back: normal inspection, no CVA tenderness, no muscle spasm Extremities/Musculoskelatal: no calf tenderness, normal capillary refill, +2 edema up to the knees, bilateral arm swelling Neurologic/Psych: alert, normal mood/affect, oriented x 3 Skin: normal color, warm/dry, no rash Laboratory Results Last 24 Hours Test 01/12/17 23:04 01/13/17 06:46 01/13/17 16:34 White Blood Count 5.65 K/uL 5.78 K/uL Red Blood Count 4.09 M/uL 3.77 M/uL Hemoglobin 13.1 g/dL 12.1 g/dL Hematocrit 40.0 % 36.8 % Mean Corpuscular Volume 97.8 fL 97.6 fL Mean Corpuscular Hemoglobin 32.0 pg 32.1 pg Mean Corpuscular Hemoglobin Concent 32.8 g/dl 32.9 g/dl Platelet Count 212 K/uL 186 K/uL Mean Platelet Volume 9.6 fL 9.6 fL Neutrophils (%) (Auto) 67.2 % 68.2 % Lymphocytes (%) (Auto) 18.1 % 17.5 % Monocytes (%) (Auto) 12.9 % 13.3 % Eosinophils (%) (Auto) 1.4 % 0.5 % Basophils (%) (Auto) 0.2 % 0.2 % Neutrophils # (Auto) 3.80 K/uL 3.94 K/uL Lymphocytes # (Auto) 1.02 K/uL 1.01 K/uL Monocytes # (Auto) 0.73 K/uL 0.77 K/uL Eosinophils # (Auto) 0.08 K/uL 0.03 K/uL Basophils # (Auto) 0.01 K/uL 0.01 K/uL RDW Standard Deviation 50.3 fL 50.6 fL RDW Coefficient of Variation 14.1 % 14.3 % Immature Granulocyte % (Auto) 0.2 % 0.3 % Immature Granulocyte # (Auto) 0.01 K/uL 0.02 K/uL Prothrombin Time 26.7 SECONDS 17.1 SECONDS Prothromb Time International Ratio 2.4 1.6 Activated Partial Thromboplast Time 40.4 SECONDS 34.1 SECONDS Partial Thromboplastin Ratio 1.6 1.3 Sodium Level 143 mmol/L 142 mmol/L Potassium Level 4.5 mmol/L 4.9 mmol/L Chloride Level 112 mmol/L 112 mmol/L Carbon Dioxide Level 23 mmol/L 24 mmol/L Anion Gap 8.0 mmol/L 6.0 mmol/L Blood Urea Nitrogen 33 mg/dl 28 mg/dl Creatinine 1.50 mg/dl 1.34 mg/dl Est Creatinine Clear Calc Drug Dose 29.8 ml/min 32.4 ml/min Estimated GFR () 38.3 43.9 Estimated GFR (Non- 33.0 37.9 BUN/Creatinine Ratio 22.1 21.2 Random Glucose 112 mg/dl 92 mg/dl Calcium Level 8.3 mg/dl 8.4 mg/dl Total Bilirubin 0.3 mg/dl Direct Bilirubin < 0.1 mg/dl Aspartate Amino Transf (AST/SGOT) 35 U/L Alanine Aminotransferase (ALT/SGPT) 34 U/L Alkaline Phosphatase 118 U/L Total Creatine Kinase 160 U/L Creatine Kinase MB 2.6 ng/ml Creatine Kinase MB Ratio 1.6 Troponin I < 0.015 ng/ml Total Protein 6.6 gm/dl Albumin 2.9 gm/dl Bedside Glucose 71 mg/dl Assessment & Plan 1. Severe recurrent hemoptysis, total of 3 episodes in patient with adenocarcinoma, undergoing chemotherapy and radiation treatment while on Coumadin with INR of 2.4. No signs of upper or lower respiratory tract infection. Coagulopathy was reversed with vitamin K. Current INR is 1.6. Patient is awaiting for bronchoscopy in the morning. If patient develops severe hemoptysis threatening hot airway we'll proceed with urgent intubation. We'll monitor patient in ICU. She may require transfer to tertiary care center. 2. History of pulmonary embolism. Patient is not a candidate for anticoagulation at this time until the source of bleeding is not known. 3. Hemodynamics are acceptable, no signs of cardiac ischemia. 4. Adenocarcinoma of the lung and nonsmoking patient. 5. SCDs for DVT prophylaxis. 6. Minimal anemia with hemoglobin of 12.1 from baseline of 13.1. Platelet count is in the normal range. 7. Mild renal insufficiency. We'll monitor electrolytes and urine output. 8. Patient is full code. I spent total 31 minutes of critical care time evaluating and managing this patient.
[2017-01-13] MEDS: [UNRECOGNIZED DRUG - OTHER] PO SCH (20:37)
[2017-01-14] VITALS (31 sets, daily range): BP systolic 83–162; BP diastolic 50–77; PULSE 66–88; TEMP 36.6–37.6; O2SAT 89–100
[2017-01-14 05:34] LABS: BASO % 0.2 %; BASO ABS # 0.01 K/uL (0-0.2); COMPLETE YES; EOS % 1.2 %; HEMATOCRIT 33.7 % (37-47); IG% 0.2 %; LYMPH % 23.5 %; LYMPH ABS # 0.97 K/uL (1.2-3.4); MEAN CELL VOLUME 97.4 fL (80-100); MEAN CORPUSCULAR HEMOGLOBIN 32.1 pg (25-34); MEAN CORPUSCULAR HGB CONC 32.9 g/dl (32-36); MEAN PLATELET VOLUME 9.8 fL (7.4-10.4); MONO % 19.1 %; NEUT % 55.8 %; PLATELET COUNT 189 K/uL (130-400); RED BLOOD COUNT 3.46 M/uL (4.2-5.4); WHITE BLOOD COUNT 4.13 K/uL (4.8-10.8)
[2017-01-14 05:46] LABS: INR 1.2 (0.9-1.1); PARTIAL THROMBOPLASTIN RATIO 1.2; PROTHROMBIN TIME (PATIENT) 12.7 SECONDS (9.0-12.0)
[2017-01-14 05:59] LABS: BUN/CREATININE RATIO 16.3 (10-20); CREATININE 1.24 mg/dl (0.60-1.20); POTASSIUM 4.4 mmol/L (3.5-5.1)
[2017-01-14 06:20] LABS: MAGNESIUM 2.1 mg/dl (1.8-2.4)
--- NOTE | 2017-01-14 07:31 | DIAGNOSTIC IMAGING REPORT ---
CHEST ONE VIEW PORTABLE HISTORY: hemoptysis COMPARISON: Chest 01/12/2017. FINDINGS: No change in the volume loss within the right hemithorax and right basilar density suggestive of postoperative change. The heart is normal in size. No new focal lung consolidations. No pneumothorax. Old, healed right humeral neck fracture. IMPRESSION: No significant change compared to the prior study. No acute process. Electronically signed by: Gilbert Vásquez M.D. 01/14/2017 7:30 AM Dictated Date/Time: 01/14/2017 7:29 AM
--- NOTE | 2017-01-14 07:57 | Family Medicine Progress Note ---
Progress Note Date of Service Jan 14, 2017. Subjective Pt evaluation today including: conversation w/ patient, conversation w/ family , physical exam, chart review, lab review, conversation w/ consultant internship, review of inpatient medication list Pain: none Voiding: no voiding problems, no incontinence Patient did not have any further coughing of blood overnight She did have a bronchoscopy with Dr. Neil this morning. 2 active bleeding sites were cauterized and biopsies were taken The patient will be watched overnight to monitor any further bleeding Constitutional: No fever, No chills, No sweats Respiratory: No cough, No sputum, No wheezing, No shortness of breath, No hemoptysis Cardiovascular: No chest pain, No edema, No palpitations Abdomen: No pain, No nausea, No vomiting, No diarrhea, No constipation Female : No dysuria, No urinary frequency Heme: No abnormal bleeding/bruising, No clotting problems Skin: No new/changing skin lesions, No bleeding Medications Current Inpatient Medications Medications (Trade) Dose Ordered Sig/Dominic Route Start Time Stop Time Status Last Admin Dose Admin Ioversol (Optiray 320) 100 ml UD PRN IV 01/12/17 23:45 01/16/17 23:44 Acetaminophen (Tylenol Tab) 650 mg Q4H PRN PO 01/13/17 03:00 02/12/17 02:59 Al Hydrox/Mg Hydrox/Simethicone (Maalox Max Susp) 15 ml Q4H PRN PO 01/13/17 03:00 02/12/17 02:59 Magnesium Hydroxide (Milk Of Magnesia Susp) 30 ml Q12H PRN PO 01/13/17 03:00 02/12/17 02:59 Ondansetron HCl (Zofran Inj) 4 mg Q6H PRN IV 01/13/17 03:00 02/12/17 02:59 Nitroglycerin (Nitrostat Tab) 0.4 mg UD PRN SL 01/13/17 03:00 02/12/17 02:59 Polyethylene (Miralax Powder Packet) 17 gm DAILY PRN PO 01/13/17 03:00 02/12/17 02:59 Cholecalciferol (Vitamin D Tab) 2,000 inter.unit DAILY PO 01/13/17 09:00 02/12/17 08:59 01/14/17 12:29 2,000 INTER.UNIT Furosemide (Lasix Tab) 20 mg DAILY PRN PO 01/13/17 03:00 02/12/17 02:59 Albuterol/ Ipratropium (Duoneb) 3 ml Q4H PRN INH 01/13/17 03:00 02/12/17 02:59 Loperamide HCl (Imodium Cap) 2 mg PRN PRN PO 01/13/17 03:00 02/12/17 02:59 Psyllium Hydrophilic Mucilloid (Metamucil Powder) 1 pkt BID PO 01/13/17 09:00 02/12/17 08:59 01/13/17 20:37 1 PKT Miscellaneous (Iv Fluids Completed) 1 ea PRN PRN N/A 01/13/17 05:00 01/13/18 04:59 Benzonatate (Tessalon Perles Cap) 100 mg TID PO 01/13/17 09:00 02/12/17 08:59 01/14/17 12:30 100 MG Crizotinib (Xalkori) 200 mg BID PO 01/13/17 21:00 02/12/17 20:59 01/14/17 12:28 200 MG Objective Vital Signs Date Time Temp Pulse Resp B/P (MAP) Pulse Ox O2 Delivery O2 Flow Rate FiO2 01/14/17 16:00 93 Room Air Oxymask 01/14/17 15:00 81 23 134/68 (90) 94 01/14/17 14:00 82 24 126/55 (78) 91 Room Air 01/14/17 13:49 Mask 01/14/17 13:00 80 22 136/77 (96) 95 Room Air 01/14/17 12:30 77 21 118/73 (88) 97 Room Air 01/14/17 12:00 97 Oxymask 2.0 01/14/17 12:00 36.8 78 25 133/72 (92) 96 Oxymask 2.0 01/14/17 11:30 74 18 88/66 (73) 92 Oxymask 2.0 01/14/17 11:15 73 25 110/63 (79) 98 Oxymask 4.0 01/14/17 11:00 74 23 110/61 (77) 99 Oxymask 6.0 01/14/17 10:45 71 17 104/60 (75) 94 Oxymask 8.0 01/14/17 10:30 66 17 85/57 (66) 94 Oxymask 12.0 01/14/17 10:25 69 14 111/57 (75) 94 Oxymask 12.0 01/14/17 10:20 66 18 104/54 (71) 94 Oxymask 12.0 01/14/17 10:15 68 15 105/63 (77) 92 Oxymask 15.0 01/14/17 10:10 70 15 91/55 (67) 89 Oxymask 15.0 01/14/17 10:05 72 13 83/50 (61) 90 Oxymask 15.0 01/14/17 10:00 73 14 84/51 (62) 91 Oxymask 15.0 01/14/17 09:55 85 25 137/71 (93) 99 Oxymask 15.0 01/14/17 09:50 81 12 127/73 (91) 100 Oxymask 15.0 01/14/17 09:45 88 16 162/69 (100) 99 Oxymask 15.0 01/14/17 08:00 36.9 75 16 112/58 (76) 94 Room Air 01/14/17 08:00 Room Air 01/14/17 08:00 Room Air 01/14/17 06:00 74 17 123/66 (85) 95 Room Air 01/14/17 05:03 76 20 115/61 (79) 94 Room Air 01/14/17 04:02 36.8 01/14/17 04:00 Room Air 01/14/17 04:00 69 17 113/55 (74) 93 Room Air 01/14/17 03:00 70 15 101/51 (68) 94 Room Air 01/14/17 02:00 78 23 120/61 (80) 93 Room Air 01/14/17 01:50 Room Air 01/14/17 01:00 79 15 129/67 (87) 94 Room Air 01/14/17 00:01 Room Air 01/14/17 00:00 36.6 70 14 101/53 (69) 95 Room Air 01/13/17 23:00 73 16 102/58 (73) 94 Room Air 01/13/17 22:00 74 15 100/52 (68) 95 Room Air 01/13/17 21:00 80 21 155/63 (93) 98 01/13/17 21:00 80 21 155/63 (93) 98 Room Air 01/13/17 20:01 36.8 75 17 135/75 (95) 96 Room Air 01/13/17 20:00 Room Air 01/13/17 18:00 78 18 111/60 (77) 97 Room Air Physical Exam General Appearance: WD/WN, no apparent distress ENT: hearing grossly normal, pharynx normal Neck: supple, no JVD, no carotid bruits Respiratory/Chest: chest non-tender, no respiratory distress, no accessory muscle use, + pertinent finding (bilateral wheeze and rhonchi) Cardiovascular: regular rate, rhythm, no edema, no murmur Abdomen: normal bowel sounds, non tender, soft Extremities: normal range of motion, non-tender, normal inspection Neurologic/Psychiatric: alert, normal mood/affect, oriented x 3 Skin: normal color, warm/dry, no rash Laboratory Results Results Past 24 Hours Test 01/14/17 00:32 01/14/17 05:03 01/14/17 06:32 Range/Units Bedside Glucose 81 82 70-90 mg/dl White Blood Count 4.13 4.8-10.8 K/uL Red Blood Count 3.46 4.2-5.4 M/uL Hemoglobin 11.1 12.0-16.0 g/dL Hematocrit 33.7 37-47 % Mean Corpuscular Volume 97.4 80-100 fL Mean Corpuscular Hemoglobin 32.1 25-34 pg Mean Corpuscular Hemoglobin Concent 32.9 32-36 g/dl Platelet Count 189 130-400 K/uL Mean Platelet Volume 9.8 7.4-10.4 fL Neutrophils (%) (Auto) 55.8 % Lymphocytes (%) (Auto) 23.5 % Monocytes (%) (Auto) 19.1 % Eosinophils (%) (Auto) 1.2 % Basophils (%) (Auto) 0.2 % Neutrophils # (Auto) 2.30 1.4-6.5 K/uL Lymphocytes # (Auto) 0.97 1.2-3.4 K/uL Monocytes # (Auto) 0.79 0.11-0.59 K/uL Eosinophils # (Auto) 0.05 0-0.5 K/uL Basophils # (Auto) 0.01 0-0.2 K/uL RDW Standard Deviation 50.6 36.4-46.3 fL RDW Coefficient of Variation 14.2 11.5-14.5 % Immature Granulocyte % (Auto) 0.2 % Immature Granulocyte # (Auto) 0.01 0.00-0.02 K/uL Prothrombin Time 12.7 9.0-12.0 SECONDS Prothromb Time International Ratio 1.2 0.9-1.1 Activated Partial Thromboplast Time 32.2 21.0-31.0 SECONDS Partial Thromboplastin Ratio 1.2 Sodium Level 143 136-145 mmol/L Potassium Level 4.4 3.5-5.1 mmol/L Chloride Level 112 98-107 mmol/L Carbon Dioxide Level 23 21-32 mmol/L Anion Gap 8.0 3-11 mmol/L Blood Urea Nitrogen 20 7-18 mg/dl Creatinine 1.24 0.60-1.20 mg/dl Est Creatinine Clear Calc Drug Dose 35.0 ml/min Estimated GFR () 48.2 Estimated GFR (Non- 41.6 BUN/Creatinine Ratio 16.3 10-20 Random Glucose 85 70-99 mg/dl Calcium Level 8.0 8.5-10.1 mg/dl Phosphorus Level 3.0 2.5-4.9 mg/dl Magnesium Level 2.1 1.8-2.4 mg/dl Total Bilirubin 0.8 0.2-1 mg/dl Direct Bilirubin 0.2 0-0.2 mg/dl Aspartate Amino Transf (AST/SGOT) 26 15-37 U/L Alanine Aminotransferase (ALT/SGPT) 27 12-78 U/L Alkaline Phosphatase 70 45-117 U/L Total Protein 5.3 6.4-8.2 gm/dl Albumin 2.3 3.4-5.0 gm/dl Microbiology Results 01/14/17 Fungal Smear, Received Pending 01/14/17 Fungal Culture, Received Pending 01/14/17 Acid Fast Stain, Received Pending 01/14/17 Mycobacterial Culture, Received Pending 01/14/17 Gram Stain, Received Pending 01/14/17 Bronchoalveolar Lavage Culture, Received Pending 01/14/17 Gram Stain, Michela Batch Pending 01/14/17 Sputum Culture, Michela Batch Pending Assessment and Plan Assessment: 76 year old female with lung cancer on chemo and radiation therapy presented with hemoptysis. Had a supratherapeutic INR which was reversed with vitamin K. She had a bronchoscopy done today which showed two active bleeding sites which were cauterized. Further biopsied were obtained. The patient will be watch until tomorrow for any further bleeding events Plan: Hemoptysis - CT PA negative for clots - Warfarin reversed with 10mg vitamin K to minimize subsequent blood loss - INR currently 1.2 - Went for bronch- two active bleeding site which were cauterized - Hgb stable, continue to monitor - Will f/u with Rashaad as outpatient H/o PE/DVT - Warfarin held - monitor INR - restart Warfarin as outpatient during follow up with Rashaad - Daily INR Lung cancer - Seen by Dr. Glover and Lidia Gonzalez - on Xalkori - will f/u as outpatient VTE PPx - Chemical anticoagulation contraindicated - KASIA, SCDs Dispo - transfer to telemetry - discharge tomorrow with Onc and Pulm f/u FULL CODE Continued [facility] stay due to: home environment unsafe for pt History Resident Physician Supervision Note: I was present with Dr. Salazar during the history and exam. I discussed the case with the resident and agree with the findings and plan as documented in the note. Any exceptions or clarifications are listed here. 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 Bronchoscopy completed today. At bedside, pt complains of mild sedation persistent from bronch but otherwise with resolution of hemoptysis and improvement in cough. Examination with mild rhoncorous breath sounds and decreased BS at the b/l bases. S1/S2 nl RRR no MCG. Hemoptysis - would hold on restart of AC considering risk of re-bleeding - pulmonology consulted - monitor CBC daily h/o PE/DVT - holding warfarin considering current foci of bleeding w/ recent procedural manipulation and concern from pulmonology Lung Ca - pt of Dr. Glover, on chemotherapy, would follow up very closely as outpatient
[2017-01-14] MEDS: PSYLLIUM 58.6% PWD PACK S\\F PO SCH ×2 (07:58→21:06)
[2017-01-14] MEDS: BENZONATATE 100MG CAP PO SCH ×3 (09:00→21:06)
--- NOTE | 2017-01-14 09:23 | Procedure Note ---
Pre-Mod Sedation Assessment General Date of Moderate Sedation: Jan 14, 2017. Vital Signs: Vital Signs Past 12 Hours Date Time Temp Pulse Resp B/P (MAP) Pulse Ox O2 Delivery O2 Flow Rate FiO2 01/14/17 08:00 36.9 75 16 112/58 (76) 94 Room Air 01/14/17 08:00 Room Air 01/14/17 06:00 74 17 123/66 (85) 95 Room Air 01/14/17 05:03 76 20 115/61 (79) 94 Room Air 01/14/17 04:02 36.8 01/14/17 04:00 Room Air 01/14/17 04:00 69 17 113/55 (74) 93 Room Air 01/14/17 03:00 70 15 101/51 (68) 94 Room Air 01/14/17 02:00 78 23 120/61 (80) 93 Room Air 01/14/17 01:50 Room Air 01/14/17 01:00 79 15 129/67 (87) 94 Room Air 01/14/17 00:01 Room Air 01/14/17 00:00 36.6 70 14 101/53 (69) 95 Room Air 01/13/17 23:00 73 16 102/58 (73) 94 Room Air 01/13/17 22:00 74 15 100/52 (68) 95 Room Air Review Cardiovascular: regular rate, rhythm, no edema, no gallop, no JVD Abdomen: normal bowel sounds, non tender, soft, no organomegaly Lungs: + rhonchi Airway Class: III Pre-Sedation Airway Assessment Oral Cavity: WNL Able to Visualize Vocal Cords: Yes Short Thick Neck: No Hx of Sleep Apnea: No Smoking Status: Never Smoker Mallampati Classification: Class II ASA Classification: Class IV Procedure Planning Contraindications-for Mod Sed: None Yes Notes The planned sedation has been discussed with the patient and consent obtained. I have identified the patient, determined the appropriateness of sedation and have assessed the patient immediately prior to the procedure. All medicine(s) and interventions are by my order.
--- NOTE | 2017-01-14 09:23 | History & Physical Bridge Note ---
H&P Re-Evaluation Bridge Note: I have examined the patient, reviewed the History & Physical and in the interval since the performance of the History & Physical I have noted the following changes of clinical significance: No changes noted
[2017-01-14] MEDS ORDERED: FENTANYL CITRATE INJ 50 MCG/1 ML 2 ML VIAL ONE (09:24)
[2017-01-14] MEDS ORDERED: MIDAZOLAM HCL 1 MG/ML 2ML VIAL ONE ×2 (09:24→09:55)
--- NOTE | 2017-01-14 10:52 | Bronchoscopy Procedure Note ---
Bronchoscopy Procedure Note Procedure: Bronchoscopy, conscious sedation, bronchial lavage right lower lobe, cryoprobe ablation Consent: Obtained through the patient placed into the chart Pre-procedural diagnosis: Hemoptysis Post-procedural diagnosis: Hemoptysis Start time: 944 End time: 1014 Total time: minutes Analgesia: 2% liquid lidocaine: Via nebulizer 4% gel lidocaine: Via right naris 2% liquid lidocaine: Via bronchoscopy Sedation: Versed IV: 4 mg Fentanyl IV: 25 g Procedure: The Olympus video bronchoscope was used for this procedure and passed down through the right naris Right naris/posterior naris/posterior oropharynx: Anatomically within normal limits Glottis: Anatomically within normal limits Vocal cords: Proper abduction and abduction, anatomically within normal limits Subglottis/trachea/Gina: Anatomically within normal limits Right bronchial tree: Right mainstem bronchus: Anatomically within normal limits Right upper lobe: Anatomically within normal limits Bronchus intermedius: Normal notable narrowing with abnormal tracheal rings at the distal in the BI Anterior distal subsegment as well as medial distal subsegment right before the takeoff of the right middle lobe showing endobronchial lesions These lesions are the active sites of bleeding as far as I can visualize Right middle lobe: 99% stenosis of the takeoff to the right middle lobe Right lower lobe: No endobronchial lesions noted but notable narrowing of 90 % at the takeoff unable to visualize most of the right lower lobe Findings: Bleeding sights visualized 2 small 2 cm oval-shaped nodules distal limb bronchus intermedius Left bronchial tree: Left mainstem bronchus: Anatomically within normal limits Left upper lobe: Anatomically within normal limits Lingula: Anatomically within normal limits Left lower lobe: Anatomically within normal limits Findings: No significant findings noted Bronchial alveolar lavage: Right lower lobe EBL: None Cryoablation: X2 small lesions in the bronchus intermedius anterior, medial right for the takeoff the RML Bleeding: No active bleeding at the end of the procedure Complications: None Follow-up: ICU
--- NOTE | 2017-01-14 11:54 | Critical Care Progress Note ---
Critical Care Progress Note Date of Service Jan 14, 2017. ICU Day ICU Day Number: [address] Cancino Subjective Patient feels well, denies acute overnight events. Did have another coughing fit last night with some ongoing hemoptysis. But is otherwise denying fever/ chills, lightheadedness, CP, SOB, palpitations. She has been kept NPO but is keen to potentially start diet post bronchoscopy today. She denies N/V/ abdominal pain. She has chronic swelling in her extremities secondary to her chemotherapeutic medication, and has not noted changes in that. She denies issues with regards to voiding or BM. Management plans were discussed and questions answered to patient's satisfaction. Objective GENERAL: alert, lying in bed with neb treatment ongoing, no acute distress, non- toxic HEAD: NC/AT. No sinus tenderness. EYES: Normal sclera and conjunctiva OROPHARYNX: No exudate, no erythema. No evidence of blood in posterior oropharynx. Lips, buccal mucosa, and tongue normal and mucous membranes are dry. NECK: Supple, no nuchal rigidity, no adenopathy, non-tender LUNGS: Clear to auscultation. Normal chest wall mechanics, good air entry with vesicular breath sounds. No crepitations, crackles, or wheezes appreciated. HEART: RRR, S1 and S2 normal, no murmurs appreciated. Normal peripheral pulses ABDOMEN: Soft, non-tender, normo-active bowel sounds, no masses, no rebound or guarding. SKIN: Warm, pink, dry. No erythema, rashes, or bruising. EXTREMITIES: Grossly normal. Moving all 4 limbs, strength 5/5. Edema of extremities - 2+ edema up to the knees, bilateral arm swelling. Calves non tender. NEURO: Alert, Ox3. No focal deficits. Normal sensorium, cranial nerves II-XII grossly intact, normal speech. Kernig and Brudzinski negative PSYCH: Mood and affect appropriate. Current SOFA Score SOFA Score Response (Comments) Value Platelets (x10) > 150 0 Bilirubin (mg/dL) < 1.2 0 [place] Coma Score 15 0 Level of Hypotension No Hypotension 0 Creatinine (mg/dL) 1.2 - 1.9 1 Total 1 Assessment & Plan Reason critically ill: 76 year old female presents with ongoing hemoptysis, being monitored for risk of airway compromise and potential need for urgent intubation. Neuro - CAM negative. - Continue to monitor CV - Vitals: HR 70s, SBP 100-110s - No significant cardiac history - Hemodynamics are acceptable, no signs of cardiac ischemia Resp - History of pulmonary adenocarcinoma diagnosed 9 years ago, undergoing chemotherapy and radiation treatment - on crizotinib. Patient non smoker. - History of pulmonary embolism 2 years ago. CTA chest done at admission negative for PE. - S/p bronchoscopy today. Washings sent for cytology, staining, and culture. - Tessalon Perles to minimize coughing. DuoNeb PRN - Potential need for urgent intubation if airway compromise 2/2 hemoptysis GI/Nutrition - Diet: Advance diet Renal/ - Mild renal insufficiency - Monitor electrolytes and urine output. ID - No signs of upper or lower respiratory tract infection. 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 INR 2.4 at admission, reversed with vitamin K in setting of severe recurrent hemoptysis, total of 4 episodes since admission - Slight anemia with hemoglobin of 11.1 from baseline of 13.1. Platelet count is in the normal range. - Trend CBC Access/Line - Peripheral lines VTE Prophylaxis - SCD, KASIA - Not a candidate for anticoagulation at this time until the source of bleeding is not known. FULL CODE Resident Physician Supervision Note: I was present with [[email or web address]] during the history and exam. I discussed the case with the resident and agree with the findings and plan as documented in the note. Any exceptions or clarifications are listed here: [None] Documented By: Bunny Cancino Consults & Procedures Consultants: Pulmonology Procedures: Bronchoscopy 01/14/17 Data Medications: Current Inpatient Medications Medications (Trade) Dose Ordered Sig/Dominic Route Start Time Stop Time Status Last Admin Dose Admin Ioversol (Optiray 320) 100 ml UD PRN IV 01/12/17 23:45 01/16/17 23:44 Acetaminophen (Tylenol Tab) 650 mg Q4H PRN PO 01/13/17 03:00 02/12/17 02:59 Al Hydrox/Mg Hydrox/Simethicone (Maalox Max Susp) 15 ml Q4H PRN PO 01/13/17 03:00 02/12/17 02:59 Magnesium Hydroxide (Milk Of Magnesia Susp) 30 ml Q12H PRN PO 01/13/17 03:00 02/12/17 02:59 Ondansetron HCl (Zofran Inj) 4 mg Q6H PRN IV 01/13/17 03:00 02/12/17 02:59 Nitroglycerin (Nitrostat Tab) 0.4 mg UD PRN SL 01/13/17 03:00 02/12/17 02:59 Polyethylene (Miralax Powder Packet) 17 gm DAILY PRN PO 01/13/17 03:00 02/12/17 02:59 Cholecalciferol (Vitamin D Tab) 2,000 inter.unit DAILY PO 01/13/17 09:00 02/12/17 08:59 01/13/17 08:17 2,000 INTER.UNIT Furosemide (Lasix Tab) 20 mg DAILY PRN PO 01/13/17 03:00 02/12/17 02:59 Albuterol/ Ipratropium (Duoneb) 3 ml Q4H PRN INH 01/13/17 03:00 02/12/17 02:59 Loperamide HCl (Imodium Cap) 2 mg PRN PRN PO 01/13/17 03:00 02/12/17 02:59 Psyllium Hydrophilic Mucilloid (Metamucil Powder) 1 pkt BID PO 01/13/17 09:00 02/12/17 08:59 01/13/17 20:37 1 PKT Miscellaneous (Iv Fluids Completed) 1 ea PRN PRN N/A 01/13/17 05:00 01/13/18 04:59 Benzonatate (Tessalon Perles Cap) 100 mg TID PO 01/13/17 09:00 02/12/17 08:59 01/13/17 20:37 100 MG Crizotinib (Xalkori) 200 mg BID PO 01/13/17 21:00 02/12/17 20:59 01/13/17 20:37 200 MG Vital Signs: Date Time Temp Pulse Resp B/P (MAP) Pulse Ox O2 Delivery O2 Flow Rate FiO2 01/14/17 11:30 74 18 88/66 (73) 92 Oxymask 2.0 01/14/17 11:15 73 25 110/63 (79) 98 Oxymask 4.0 01/14/17 11:00 74 23 110/61 (77) 99 Oxymask 6.0 01/14/17 10:45 71 17 104/60 (75) 94 Oxymask 8.0 01/14/17 10:30 66 17 85/57 (66) 94 Oxymask 12.0 01/14/17 10:25 69 14 111/57 (75) 94 Oxymask 12.0 01/14/17 10:20 66 18 104/54 (71) 94 Oxymask 12.0 01/14/17 10:15 68 15 105/63 (77) 92 Oxymask 15.0 01/14/17 10:10 70 15 91/55 (67) 89 Oxymask 15.0 01/14/17 10:05 72 13 83/50 (61) 90 Oxymask 15.0 01/14/17 10:00 73 14 84/51 (62) 91 Oxymask 15.0 01/14/17 09:55 85 25 137/71 (93) 99 Oxymask 15.0 01/14/17 09:50 81 12 127/73 (91) 100 Oxymask 15.0 01/14/17 09:45 88 16 162/69 (100) 99 Oxymask 15.0 01/14/17 08:00 36.9 75 16 112/58 (76) 94 Room Air 01/14/17 08:00 Room Air 01/14/17 06:00 74 17 123/66 (85) 95 Room Air 01/14/17 05:03 76 20 115/61 (79) 94 Room Air 01/14/17 04:02 36.8 01/14/17 04:00 Room Air 01/14/17 04:00 69 17 113/55 (74) 93 Room Air 01/14/17 03:00 70 15 101/51 (68) 94 Room Air 01/14/17 02:00 78 23 120/61 (80) 93 Room Air 01/14/17 01:50 Room Air 01/14/17 01:00 79 15 129/67 (87) 94 Room Air 01/14/17 00:01 Room Air 01/14/17 00:00 36.6 70 14 101/53 (69) 95 Room Air 01/13/17 23:00 73 16 102/58 (73) 94 Room Air 01/13/17 22:00 74 15 100/52 (68) 95 Room Air 01/13/17 21:00 80 21 155/63 (93) 98 01/13/17 21:00 80 21 155/63 (93) 98 Room Air 01/13/17 20:01 36.8 75 17 135/75 (95) 96 Room Air 01/13/17 20:00 Room Air 01/13/17 18:00 78 18 111/60 (77) 97 Room Air 01/13/17 16:00 97 Room Air 01/13/17 16:00 36.8 75 20 115/64 (81) 97 Room Air 01/13/17 12:00 Room Air Laboratory Results: Last 24 Hours Test 01/13/17 16:34 01/14/17 00:32 01/14/17 05:03 01/14/17 06:32 Bedside Glucose 71 mg/dl 81 mg/dl 82 mg/dl White Blood Count 4.13 K/uL Red Blood Count 3.46 M/uL Hemoglobin 11.1 g/dL Hematocrit 33.7 % Mean Corpuscular Volume 97.4 fL Mean Corpuscular Hemoglobin 32.1 pg Mean Corpuscular Hemoglobin Concent 32.9 g/dl Platelet Count 189 K/uL Mean Platelet Volume 9.8 fL Neutrophils (%) (Auto) 55.8 % Lymphocytes (%) (Auto) 23.5 % Monocytes (%) (Auto) 19.1 % Eosinophils (%) (Auto) 1.2 % Basophils (%) (Auto) 0.2 % Neutrophils # (Auto) 2.30 K/uL Lymphocytes # (Auto) 0.97 K/uL Monocytes # (Auto) 0.79 K/uL Eosinophils # (Auto) 0.05 K/uL Basophils # (Auto) 0.01 K/uL RDW Standard Deviation 50.6 fL RDW Coefficient of Variation 14.2 % Immature Granulocyte % (Auto) 0.2 % Immature Granulocyte # (Auto) 0.01 K/uL Prothrombin Time 12.7 SECONDS Prothromb Time International Ratio 1.2 Activated Partial Thromboplast Time 32.2 SECONDS Partial Thromboplastin Ratio 1.2 Sodium Level 143 mmol/L Potassium Level 4.4 mmol/L Chloride Level 112 mmol/L Carbon Dioxide Level 23 mmol/L Anion Gap 8.0 mmol/L Blood Urea Nitrogen 20 mg/dl Creatinine 1.24 mg/dl Est Creatinine Clear Calc Drug Dose 35.0 ml/min Estimated GFR () 48.2 Estimated GFR (Non- 41.6 BUN/Creatinine Ratio 16.3 Random Glucose 85 mg/dl Calcium Level 8.0 mg/dl Phosphorus Level 3.0 mg/dl Magnesium Level 2.1 mg/dl Total Bilirubin 0.8 mg/dl Direct Bilirubin 0.2 mg/dl Aspartate Amino Transf (AST/SGOT) 26 U/L Alanine Aminotransferase (ALT/SGPT) 27 U/L Alkaline Phosphatase 70 U/L Total Protein 5.3 gm/dl Albumin 2.3 gm/dl Resident Tracking Resident Involvement: Resident Care Provided Care Provided: Adult Hospital Medicine
[2017-01-14] MEDS: [UNRECOGNIZED DRUG - OTHER] PO SCH ×2 (12:28→21:06)
[2017-01-14] MEDS: CHOLECALCIFEROL 1000 INTER.UNIT TAB PO SCH (12:29)
[2017-01-15 00:10] VITALS: BP 100/50; PULSE 76; TEMP 37.7; O2SAT 94
[2017-01-15 04:20] VITALS: O2SAT 96
[2017-01-15 04:30] VITALS: BP 95/57; PULSE 67; TEMP 36.9; O2SAT 94
[2017-01-15 05:16] LABS: COMPLETE YES; EOS % 0.6 %; HEMATOCRIT 33.8 % (37-47); IG% 0.1 %; LYMPH % 13.6 %; LYMPH ABS # 0.99 K/uL (1.2-3.4); MEAN CELL VOLUME 97.1 fL (80-100); MEAN CORPUSCULAR HEMOGLOBIN 31.9 pg (25-34); MEAN CORPUSCULAR HGB CONC 32.8 g/dl (32-36); MEAN PLATELET VOLUME 10.3 fL (7.4-10.4); MONO % 21.8 %; NEUT % 63.9 %; PLATELET COUNT 176 K/uL (130-400); RED BLOOD COUNT 3.48 M/uL (4.2-5.4); WHITE BLOOD COUNT 7.26 K/uL (4.8-10.8)
[2017-01-15 05:25] LABS: INR 1.1 (0.9-1.1); PARTIAL THROMBOPLASTIN RATIO 1.2; PROTHROMBIN TIME (PATIENT) 12.3 SECONDS (9.0-12.0)
[2017-01-15 05:43] LABS: BUN/CREATININE RATIO 16.2 (10-20); CREATININE 1.47 mg/dl (0.60-1.20); MAGNESIUM 2.1 mg/dl (1.8-2.4); POTASSIUM 4.1 mmol/L (3.5-5.1)
[2017-01-15 05:46] LABS: PHOSPHORUS 3.1 mg/dl (2.5-4.9)
[2017-01-15 08:00] VITALS: BP 99/52; PULSE 75; TEMP 36.9; O2SAT 94
[2017-01-15] MEDS: BENZONATATE 100MG CAP PO SCH ×2 (08:25→13:36)
[2017-01-15] MEDS: CHOLECALCIFEROL 1000 INTER.UNIT TAB PO SCH (08:25)
[2017-01-15] MEDS: PSYLLIUM 58.6% PWD PACK S\\F PO SCH (08:26)
[2017-01-15] MEDS: [UNRECOGNIZED DRUG - OTHER] PO SCH (08:35)
--- NOTE | 2017-01-15 12:04 | Discharge Instructions ---
Discharge Instructions Date of Service Jan 15, 2017. Admission Reason for Admission: Hemoptysis Discharge Discharge Diagnosis / Problem: Coughing of blood Discharge Goals Goal(s): Improve disease control, Therapeutic intervention, Prevent Disease Progression Activity Recommendations Activity Limitations: per Instructions/Follow-up section . Instructions / Follow-Up Instructions / Follow-Up You were found to have 2 small bleeding lesions in your bronchus (wind pipe) these were ablated with cryotherapy and there was no bleeding seen at the end of the bronchoscopy. You may expect to have a small amount of dark red blood no more than a tablespoon for the next 2-3 days. If you have any more than this than please come back to the emergency department. Your Hgb (red blood cell count) was stable on discharge. Please drink plenty of water over the next couple of days and please get Dr. Langston to recheck your kidney function when you see him next week. Please do not take your warfarin until further discussion with either Dr. Glover or Dr. Neil. The results of your bronchoscopy will be sent to all your doctors. Please follow up with the following doctors. Your appointments have been made Please, follow up with Dr. Glover ([facility]) on SaturdayJanuary 18 at 10 :00 am. *If you need to change this appointment you can call the office at [phone]. Please, follow up at Dr. Langston's office with Fabby Ramírez PA-C on SaturdayJanuary 21 at 10:00 am. *If you need to change this appointment you can call the office at [phone]. Please, follow up with Dr. Neil (account installation specialist who did bronchoscopy) on SaturdayJanuary 28 at 1:30 pm. *This office is located in [address] of [facility] - big building next to this hospital. *If you need to change this appointment you can call the office at [phone]. " Current Hospital Diet Patient's current hospital diet: AHA Diet (Heart Healthy) Discharge Diet Recommended Diet: Regular Diet Pending Studies Studies pending at discharge: yes List of pending studies: Bronchial washings and sputum culture Medical Emergencies . Who to Call and When: Medical Emergencies: If at any time you feel your situation is an emergency, please call 911 immediately. . Non-Emergent Contact Non-Emergency issues call your: Oncologist . . "Provider Documentation" section prepared by Kentrell Salazar. . VTE Core Measure Inpt VTE Proph given/why not?: Violet Desai, MCKENZIE's
--- NOTE | 2017-01-15 12:11 | Discharge Summary ---
Discharge Summary Date of Service Jan 15, 2017. (Kentrell Salazar MD) Discharge Summary Admission Date: Jan 13, 2017 at 15:34 Discharge Date: Jan 15, 2017 Discharge Disposition: Home Principal Diagnosis: Haemoptysis Immunizations: Have You Had Influenza Vaccine: Yes History of Tetanus Vaccine?: utd Tetanus Immunization Date: July 21, 2005 History of Pneumococcal: Yes Pneumococcal Date: Dec 21, 2010 History of Hepatitis B Vaccine: Unknown Procedures: Bronchoscopy Consultations: Relay Repairer Pulmonology (Kentrell Salazar MD) Medication Reconciliation Continued Medications: Cholecalciferol (Vitamin D3) 1,000 Unit Tab 2000 UNITS PO DAILY for 30 Days, TAB 5 Refills Crizotinib (Xalkori) 200 Mg Cap 200 MG PO BID Furosemide (Lasix) 20 Mg Tab 20 MG PO DAILY PRN for Edema Ipratropium-Albuterol (Duoneb) 3 Ml Nebu 1 TREATMENT INH Q4H PRN for SOB/Wheezing, INHA Loperamide Hcl (Imodium) 2 Mg Cap 2 MG PO UD PRN for Diarrhea, CAP Psyllium (Metamucil) 48.57 % Pow 1 TSP PO BID Discontinued Medications: Warfarin Sod (Coumadin) 2.5 Mg Tab 2.5 MG PO [id number] Warfarin Sod (Coumadin) 2.5 Mg Tab 3.75 MG PO WK SATURDAY Discharge Exam Patient with 2 tablespoon of coughing bright red blood yesterday after bronchoscopy and teaspoon of blood in cough this morning Otherwise patient feels well Review of Systems: Constitutional: No fever, No chills, No sweats, No weakness Respiratory: + cough, + hemoptysis, No sputum, No shortness of breath, No dyspnea on exertion Cardiovascular: No chest pain, No edema, No palpitations Abdomen: No pain, No nausea, No vomiting, No diarrhea, No constipation Hematologic / Lymphatic: + abnormal bleeding/bruising, No clotting problems Integumentary: No rash, No itch, No new/changing skin lesions (Kentrell Salazar MD) Hospital Course Assessment: 76 year old female with lung cancer on chemo and radiation therapy presented with hemoptysis. Had a supratherapeutic INR which was reversed with vitamin K. She had a bronchoscopy done which showed two active bleeding sites which were cauterized. Further biopsied were obtained. The patient was watched overnight and had minimal haemoptysis. Will d/c with follow up with Dr. Glover , Dr. Langston and Dr. Neil Plan: Hemoptysis - CT PA negative for clots - Warfarin reversed with 10mg vitamin K to minimize subsequent blood loss - INR currently 1.1 - Went for bronch- two active bleeding site which were cauterized - Hgb stable, continue to monitor - Will f/u with Rashaad as outpatient - Bronchial washings pending H/o PE/DVT - Warfarin held on discharge - restart Warfarin as outpatient during follow up with Rashaad or [facility] Lung cancer - Seen by Dr. Glover and Lidia Gonzalez - on Xalkori - will f/u as outpatient [facility]OOK - creatinine increased to 1.47 on day fo discharge - patient says she has not been nearly enough water in hospital - encourage to increase PO intake and follow with PCP for repeat BMP Total Time Spent: Less than 30 minutes This includes examination of the patient, discharge planning, medication reconciliation, and communication with other providers. (Kentrell Salazar MD) Discharge Instructions Please refer to the electronic Patient Visit Report (Discharge Instructions) for additional information. (Kentrell Salazar MD) Additional Copies To Corey Glover D.O.; Shiv Langston M.D.; Deepak Neil MD Assessment/Plan Resident Physician Supervision Note: I was present with Dr. Salazar during the history and exam. I discussed the case with the resident and agree with the findings and plan as documented in the note. Any exceptions or clarifications are listed here. 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 Bronchoscopy completed with pathology pending. Gradual resolution of hemoptysis and improvement in cough. Examination with mild rhoncorous breath sounds and decreased BS at the b/l bases improved air movement from previous examination. S1/S2 nl RRR no MCG. Hemoptysis - hold on restart of AC considering risk of re-bleeding, to be restarted after follow up with pulmonology/oncology, recheck CBC in outpatient h/o PE/DVT - holding warfarin as above Lung Ca - pt of Dr. Glover, on chemotherapy, would follow up very closely as outpatient (Joaquín Reid MD)
[2017-01-15 13:27] VITALS: BP 99/52; PULSE 75; TEMP 36.9; O2SAT 94
[2017-01-15] MEDS ORDERED: BENZ100C84 PO (14:03)
[2017-02-06] MEDS ORDERED: WARF2.5T8 PO (09:27)
[2017-02-06] MEDS ORDERED: WARF5TAB7 PO (09:28)
== END 2017-01-15 14:51 | disposition home or self-care (01) | DRG 164 ==
LOC: C.EDB 22:25 → C.2T 01-13 03:00 → ENRESERV 01-13 03:22 → C.MSICU 01-13 15:34 → OBSVTOIN 01-13 15:34
PROVIDERS: ADMIT Student in an Organized Health Care Education/Training Program; ATTEND Family Medicine
PROC: 0B5 Respiratory System, Destruction (ICD-10-PCS; principal; 2017-01-14)
PROC: 0B9F8ZZ Drainage of Right Lower Lung Lobe, Via Natural or Artificial Opening Endoscopic (ICD-10-PCS; principal; 2017-01-14)
DX: R04.2 Hemoptysis (principal); C34.90 Malignant neoplasm of unspecified part of unspecified bronchus or lung; N17.9 Acute kidney failure, unspecified; J44.9 Chronic obstructive pulmonary disease, unspecified; Z86.711 Personal history of pulmonary embolism; Z86.718 Personal history of other venous thrombosis and embolism; Z79.01 Long term (current) use of anticoagulants; Z79.899 Other long term (current) drug therapy; Z91.041 Radiographic dye allergy status; Z88.5 Allergy status to narcotic agent

== ENCOUNTER → 2017-03-13 | Outpatient (CLI) | payer BC ==
[~2017-03-13] MED LIST changes: -CMD/25 PO; -CMD25 PO; -FLUT1INH7 INH; +WARF2.5T8 PO; +WARF5TAB7 PO
== END | disposition home or self-care (01) ==
LOC: C.LAB 11:13
PROVIDERS: ATTEND Internal Medicine
DX: N18.9 Chronic kidney disease, unspecified (principal)

== ENCOUNTER → 2017-03-27 | Outpatient (CLI) | payer BC ==
--- NOTE | 2017-03-27 15:08 | DIAGNOSTIC IMAGING REPORT ---
(CHEST) THORAX WITHOUT CT DOSE: 230.23 mGycm HISTORY: Lung carcinoma LUNG CA TECHNIQUE: Multiaxial CT images of the chest were performed without contrast. A dose lowering technique was utilized adhering to the principles of ALARA. COMPARISON: 01/13/2017 FINDINGS: Mild apical fibrotic change unaltered from the prior exam. Minimal left apical nodularity diminished in size in the prior study. Current maximum dimension is 3.4 mm diminished from 6 mm. Fibrotic changes right pulmonary apex are similar. Postoperative and postradiation changes to the right perihilar and basilar region appear similar. There is no evidence for new interval or progressive process. Left lung is considered clear other than that noted. Thoracic aorta is normal in course and caliber. IMPRESSION: Stable evaluation of the chest with no major change from the prior study. 2. A small left apical nodule is diminished in size. 3. No evidence for new interval or progressive disease The above report was generated using voice recognition software. It may contain grammatical, syntax or spelling errors. Electronically signed by: Esdras Robledo M.D. 03/27/2017 3:07 PM Dictated Date/Time: 03/27/2017 2:53 PM
== END | disposition home or self-care (01) ==
LOC: C.CTS 14:32
PROVIDERS: ATTEND Nurse Practitioner Family
DX: Z85.118 Personal history of other malignant neoplasm of bronchus and lung (principal)

== ENCOUNTER → 2017-04-09 | Day surgery (SDC) | payer BC ==
--- NOTE | 2017-04-08 20:25 | History and Physical ---
History & Physical Date of Service Apr 08, 2017. History & Physical 76-year-old female here for evaluation of hemoptysis. 76-year-old female who was seen for a follow-up evaluation regarding carcinoma of the lung and COPD. 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 She received chemotherapy and radiation therapy. In 2010 she underwent fiberoptic bronchoscopy and was found to have endobronchial disease at the takeoff of the right middle lobe bronchus as well as narrowing and distortion of the anterior, medial, and lateral basilar segments of the right lower lobe. She was treated with laser bronchoscopy to improved patency. She also received chemotherapy at that time. She tolerated poorly. In November of 2010 she developed a right upper extremity swelling at the site of the Port-A -Cath and was found to have a DVT. She was placed on Lovenox and then later Arixtra. Her treatment with chemotherapy was discontinued. In 2011 she had some hemoptysis. She underwent bronchoscopy on 05/25/2011 and she had recurring disease at the orifice of the right middle lobe. Brushings and washings demonstrated recurrent adenocarcinoma with papillary differentiation consistent with her previous disease. In July of 2011 she underwent high dose endobronchial radiation therapy for 4 sessions. 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 This was treated with angioplasty and subsequently she had her port removed. In 2012 she was seen at [facility] in [place]. A PET scan had demonstrated a positive right paratracheal lymph node. Bronchoscopy was repeated an endobronchial ultrasound needle aspirate of a right paratracheal lymph node was done on August 24, 2013. She also had narrowing of the right middle lobe area and some scarring in the basilar segment of the right lower lobe. The needle aspirates done of the right paratracheal area revealed adenocarcinoma which tested positive for AL K receptor. The patient was subsequently started on Xalkori in 2013. In April,, she had increasing shortness of breath. In June, she fell and had a fractured right humeral head. At the time of her evaluation on September 27, 2016 she was started on Breo Ellipta. She was on 200/251 puff daily. She was also advised to take her nebulizer treatments 20 minutes before going out for her daily walks. The Breo Ellipta had helped quite a bit. In January she had a sudden onset of hemoptysis. She was admitted to [facility] for 3 days. Bronchoscopy was done by Dr. Neil. Cryo probe ablation was done. She has not had any hemoptysis since that time. She is overall feeling reasonably well. Her appetite is fairly good. She has shortness of breath about the same as in the past. She is comfortable walking on level ground but she is short of breath going up steps or hills. Active Problems 1. History of Acute deep vein thrombosis of distal leg 2. Biceps tendon tear 3. Bronchiectasis 4. Carcinoma of lung 5. Change in bowel habits 6. CKD (chronic kidney disease) 7. COPD, moderate 8. Diarrhea 9. Fracture of right humerus 10. Hearing loss 11. Hemoptysis 12. History of pulmonary embolism 13. Laceration of head 14. Limb swelling 15. Right asymmetrical SNHL 16. Sacroiliac joint pain 17. SNHL (sensorineural hearing loss) 18. Subjective tinnitus 19. Vitamin D deficiency 20. Wheezing 21. History of Allergic rhinitis due to pollen 22. Benign essential hypertension 23. History of Closed Colles' Fracture Of The Left Wrist 24. History of pericarditis 25. History of herpes zoster 26. History dark tarry stools 27. History radiation pneumonitis 28. History tachycardia 29. History DVT Surgical History Problems 1. History of Cholecystectomy Laparoscopic 2. History of Total Abdominal Hysterectomy Family History Mother 1. Family history of Congestive Heart Failure Father 2. Family history of Congestive Heart Failure Social History Being A Social Drinker Marital History - Currently Never smoker Retired From Work Uses Safety Equipment - Seatbelts Current Meds 1. Furosemide 20 MG Oral Tablet; TAKE 1 TABLET DAILY NEEDED for 2. Imodium CAPS; TAKE CAPSULE PRN; 3. Ipratropium-Albuterol 0.5-2.5 (3) MG/3ML Inhalation Solution; USE 1 UNIT DOSE IN NEBULIZER EVERY 4 HOURS NEEDED; 4. Nebulizer/Tubing/Mouthpiece KIT; USE DIRECTED; 5. Vitamin D 2000 UNIT Oral Tablet; Take 1 tablet daily; 6. Warfarin Sodium 2.5 MG Oral Tablet; Take as deirected per coagulation 7. Warfarin Sodium 5 MG Oral Tablet; take 1 tablet as directed BY CLINIC; 8. Xalkori 200 MG Oral Capsule; Take 1 capsule twice daily; Allergies 1. Morphine Derivatives 2. Codeine Derivatives 3. Contrast Media Ready-Box MISC 4. Fentanyl Vital Signs Weight: 152 lb 4 oz BMI Calculated: 27.85 BSA Calculated: 1.7 Systolic: 122 Diastolic: 64 Heart Rate: 70 O2 Saturation: 96, RA Physical Exam The patient is a 76-year-old female who looks well considering everything. Weight is 152.4 pounds. This reflects a 2.8 pound weight gain compared with . The patient wears corrective lenses. Pupils were reactive to light. Nares were clear. Mouth exam showed no significant abnormality. Palpation of the neck reveals no lymph nodes. Heart rate was 70 beats per minute. The rhythm was regular. Blood pressure 122/ 64. Auscultation of the lung yanes revealed inspiratory wheezing on the right side. This was a new finding compared with my prior exam from October. Respiratory rate was 20 breaths per minute. Saturation was 96 percent on room air. The wheezing was heard both anteriorly and posteriorly. Extremities reveals severe edema in all 4 extremities. Both hands now our about the same as 1 another. Both legs are +4. She states the swelling is believed to be due to the Xalkori.
[~2017-04-09] VITALS: Ht 157.5 cm; Wt 68.2 kg
[~2017-04-09] MED LIST changes: +ENOX30IN4 SQ; +LIDOCAINE 4% INH SOLN 4 ML BTL TOP ONE; +LIDOCAINE HCL 2% LOCAL 50ML VIAL INSTIL ONE; +LIDOCAINE VISCOUS 2% 100ML TOP ONE; +MIDAZOLAM HCL 5 MG/ML 1 ML VIAL IV ONE
[2017-04-09 09:00] VITALS: BP 117/72; PULSE 76; TEMP 37.2; O2SAT 98; Ht 157.5 cm; Wt 68.2 kg
--- NOTE | 2017-04-09 10:13 | Pre Sedation Assessment ---
Pre Sedation Assessment General Date of Sedation: Apr 09, 2017. Vital Signs Past 12 Hours Date Time Temp Pulse Resp B/P (MAP) Pulse Ox O2 Delivery O2 Flow Rate FiO2 04/09/17 09:00 37.2 76 22 117/72 (87) 98 Room Air Review Cardiovascular: regular rate, rhythm, no edema, no gallop, no JVD, no murmur, normal peripheral pulses Lungs: + rhonchi, + wheezing Pre-Sedation Airway Assessment Smoking Status: Never Smoker Hx of Sleep Apnea: No Hx of difficult intubation: No Short Thick Neck: No Thyro-mental Distance: > 3 Finger Breadths Oral Cavity: WNL ASA Classification: Class III NPO Status Date of Last Intake of Fluids: Apr 08, 2017 Time of Last Intake of Fluids: 2299 Date of Last Intake of Solids: Apr 08, 2017 Time of Last Intake of Solids: 2229 Procedure Planning Contraindications for Sedation: None Current Medications Reviewed: Yes Notes The planned sedation has been discussed with the patient. Informed Consent was obtained. I have identified the patient, determined the appropriateness of sedation and have assessed the patient immediately prior to the procedure. All medicine(s) and interventions are by my order.
--- NOTE | 2017-04-09 11:16 | Post Sedation Assessment ---
Post Sedation Assessment General Date of Sedation Apr 09, 2017. Vital Signs: Vital Signs Past 12 Hours Date Time Temp Pulse Resp B/P (MAP) Pulse Ox O2 Delivery O2 Flow Rate FiO2 04/09/17 11:10 83 18 156/71 100 Mask 10 04/09/17 11:05 78 16 138/58 100 Mask 10 04/09/17 11:00 76 16 159/98 100 Mask 10 04/09/17 10:55 82 20 138/75 100 Mask 10 04/09/17 10:50 81 18 164/83 100 Mask 10 04/09/17 10:45 78 18 156/86 100 Mask 10 04/09/17 10:40 74 18 170/82 100 Mask 10 04/09/17 09:00 37.2 76 22 117/72 (87) 98 Room Air Post Procedure Recovery Score Activity: (2) Moves 4 extremities * Respiration: (2) Deep breath/cough Circulation: (2) +/-20% PreAnes Value Consciousness: (1) Arouseable (by name) Oxygen Saturation: (2) > 92% On Room Air Discharge Sedation Level of Care: Phase I Post Sedation Plan On clinical assessment, the patient appears to have tolerated the sedation without complications. Patient is recovering as anticipated. Patient will continue to be monitored by nursing and may be discharged when sedation discharge criteria are met per below protocol. Upon Completions of procedure and additional 15 minutes continue every 5 minute vital signs and the P.A.R. score; then discharge to a Phase I or Fast Track to Phase II per the following guidelines: * Discharge Patient to appropriate Phase II area if PAR is 8 or greater or return to pre- procedure baseline. The post - procedure orders will be as directed. * If PAR score is less than 8 or not return to pre-procedure baseline then patient will follow Phase I monitoring till PAR is reached for Phase II. The Phase I may be done in procedure room or may call to secure a Phase I area. * If naloxone or flumazenil are used for reversal, hold in Phase I for an additional 60 -120 minutes before discharge to Phase II. Please call the Sedation Physician to re-evaluate and complete post-note for discharge to Phase II area. Do NOT discharge from procedure sedation or Phase 1 until post- sedation evaluation note is complete by procedure /sedation MD Sedation Discharge Instructions to be given to the patient at discharge to home.
--- NOTE | 2017-04-09 11:21 | Bronchoscopy Procedure Note ---
Bronchoscopy Procedure Note Procedure: Bronchoscopy, conscious sedation, bronchial lavage right lower lobe Consent: Obtained through the patient placed into the chart Pre-procedural diagnosis: Hemoptysis Post-procedural diagnosis: Post radiation changes previous Start time: 1051 End time: 1111 Total time: 20minutes Analgesia: 2% liquid lidocaine: Via nebulizer 4% gel lidocaine: Via right naris 2% liquid lidocaine: Via bronchoscopy Sedation: Versed IV: 5mg Fentanyl IV: 0g Procedure: The Olympus video bronchoscope was used for this procedure and passed down through the right naris, right naris notably erythematous Right naris/posterior naris/posterior oropharynx: Anatomically within normal limits, posterior naris notably erythematous, posterior oropharynx cobblestoning Glottis: Anatomically within normal limits Vocal cords: Proper abduction and abduction, anatomically within normal limits Subglottis/trachea/Gina: Anatomically within normal limits Right bronchial tree: Right mainstem bronchus: Anatomically within normal limits Right upper lobe: Anatomically within normal limits Bronchus intermedius: No we narrowed with post radiation changes/scarring Right middle lobe: Notably obstructed with post radiation changes/chronic Right lower lobe: Takeoff is narrowed with post radiation changes Findings: No active bleeding Left bronchial tree: Left mainstem bronchus: Anatomically within normal limits Left upper lobe: Anatomically within normal limits Lingula: Anatomically within normal limits Left lower lobe: Anatomically within normal limits Findings: No significant findings noted Bronchial alveolar lavage: Right lower lobe EBL: None Complications: None Follow-up: ASU
--- NOTE | 2017-04-09 11:23 | Discharge Instructions ---
Discharge Instructions Date of Service Apr 09, 2017. Admission Reason for Admission: Hemoptysis Discharge Discharge Diagnosis / Problem: post radiation bronchiectasis Discharge Goals Goal(s): Diagnostic testing Activity Recommendations Activity Limitations: resume your previous activity . Instructions / Follow-Up Instructions / Follow-Up At the [facility] pulmonary clinic Current Hospital Diet Patient's current hospital diet: Discharge Diet Recommended Diet: Regular Diet Procedures Procedures Performed: Bronchoscopy, conscious sedation and bronchial lavage of the right lower lobe Pending Studies Studies pending at discharge: no Medical Emergencies . Who to Call and When: Medical Emergencies: If at any time you feel your situation is an emergency, please call 911 immediately. . Non-Emergent Contact Non-Emergency issues call your: Quartz Cutter . . "Provider Documentation" section prepared by Deepak Neil. . VTE Core Measure Inpt VTE Proph given/why not?: Warfarin (Coumadin)
[2017-04-09 11:33] VITALS: BP 133/64; PULSE 71; TEMP 36.4; O2SAT 97
[2017-04-09 11:55] VITALS: BP 125/54; PULSE 73; TEMP 36.5; O2SAT 94
[2017-04-09 12:32] VITALS: BP 105/58; PULSE 70; TEMP 36.4; O2SAT 95
[2017-04-09 12:58] VITALS: BP 124/52; PULSE 71; TEMP 36.4; O2SAT 96
[2017-04-09 13:33] VITALS: BP 114/61; PULSE 72; TEMP 36.4; O2SAT 97
== END | disposition home or self-care (01) ==
LOC: C.ACU 08:29
PROVIDERS: ATTEND Internal Medicine Critical Care Medicine
DX: R04.2 Hemoptysis (principal); C34.91 Malignant neoplasm of unspecified part of right bronchus or lung; J44.9 Chronic obstructive pulmonary disease, unspecified; Z92.21 Personal history of antineoplastic chemotherapy; Z86.718 Personal history of other venous thrombosis and embolism; N18.9 Chronic kidney disease, unspecified; Z86.711 Personal history of pulmonary embolism; I10 Essential (primary) hypertension; Z90.49 Acquired absence of other specified parts of digestive tract; Z90.710 Acquired absence of both cervix and uterus; Z82.49 Family history of ischemic heart disease and other diseases of the circulatory system; Z79.01 Long term (current) use of anticoagulants

== ENCOUNTER 2017-06-22 13:24 | Emergency (ER) | payer BC ==
[~2017-06-22] VITALS: Ht 157.5 cm; Wt 68.5 kg
[~2017-06-22 13:24] MED LIST changes: -ENOX30IN4 SQ; -LIDOCAINE 4% INH SOLN 4 ML BTL TOP ONE; -LIDOCAINE HCL 2% LOCAL 50ML VIAL INSTIL ONE; -LIDOCAINE VISCOUS 2% 100ML TOP ONE; -MIDAZOLAM HCL 5 MG/ML 1 ML VIAL IV ONE
[2017-06-22 13:32] VITALS: TEMP 36.5; Ht 157.5 cm; Wt 68.5 kg
--- NOTE | 2017-06-22 13:43 | EMERGENCY ROOM VISIT NOTE ---
History Report prepared by Enrrique: Gilma Dickerson Under the Supervision of: Dr. Sage Adan M.D. 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 She describes her pain as extreme and worsening. She notes that movement and standing are worsening factors and she denies any chest pain. Patient is on Coumadin and states her pain feels similar to her previous DVTs. She also states she is being treated for lung cancer and has chronic swelling of her bilateral upper extremities and bilateral lower extremity's due to chemotherapy. She reports the pain is mild, only worsened with movement. She reports not needing anything for pain at this time. 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 A total of ten systems were reviewed and were otherwise negative. Past Medical & Surgical Medical Problems: (1) Adenocarcinoma of lung (2) History of cholecystectomy (3) Hypertension (4) Subclavian vein thrombosis (5) Tachycardia Surgical Problems: (1) H/O: hysterectomy (2) History of thoracotomy Family History Patient reports no known family medical history. Social History Smoking Status: Never Smoker Alcohol Use: occasionally Drug Use: none Marital Status: Housing Status: lives with family Occupation Status: retired Current/Historical Medications Scheduled Cholecalciferol (Vitamin D3), 1,000 UNITS PO DAILY Crizotinib (Xalkori), 200 MG PO BID Psyllium (Metamucil), 1 TSP PO BID Warfarin Sod (Jantoven), 2.5 MG PO 6XWK Warfarin Sod (Jantoven), 3.75 MG PO WK Scheduled PRN Loperamide Hcl (Imodium), 2 MG PO UD PRN for Diarrhea Allergies Coded Allergies: Morphine (Verified Allergy, Severe, SHORTNESS OF BREATH, 06/22/17) Iodinated Diagnostic Agents (Verified Adverse Reaction, Intermediate, GI Sx - constrast media, 06/22/17) Codeine (Verified Adverse Reaction, Mild, VOMITING, 06/22/17) Physical Exam Vital Signs Date Time Temp Pulse Resp B/P (MAP) Pulse Ox O2 Delivery O2 Flow Rate FiO2 06/22/17 14:56 69 18 131/73 96 Room Air 06/22/17 13:32 36.5 79 20 151/76 98 Room Air Physical Exam Physical Exam GENERAL: She is oriented to person, place, and time. She appears well- developed and well-nourished. She does not appear distressed. ____ HENT: Exam performed. Head: Normocephalic and atraumatic. Right Ear: External ear normal. No mastoid tenderness. Left Ear: External ear normal. No mastoid tenderness. Mouth/Throat: The oropharynx is clear and moist. No trismus in the jaw. No dental abscesses or uvula swelling. No oropharyngeal exudate or tonsillar abscesses. ____ EYES: Conjunctivae and EOM are normal. Pupils are equal, round, and reactive to light. Right eye exhibits no discharge. Left eye exhibits no discharge. No scleral icterus. ____ NECK: Normal range of motion. Neck supple. No JVD present. No spinous process tenderness present. No carotid bruit present. No rigidity. No tracheal deviation and normal range of motion present. No Brudzinski's sign and no Kernig 's sign noted. ____ CV: Normal rate, regular rhythm, normal heart sounds and intact distal pulses. There is no peripheral edema. Palpable radial pulses bue. ____ PULM/CHEST: Effort normal and breath sounds normal. No respiratory distress. No stridor. She has no wheezes. She has no rales. Chest Wall: She exhibits no tenderness. ____ ABD: The abdomen is soft. Bowel sounds are normal. Sh has no distension. No mass is present. There is no tenderness. There is no rebound, no guarding, no Gamble's sign and no tenderness at McBurney's point. Rovsig negative MUSC/SKEL: BLE swelling, 1+ edema baseline for patient. Pain on palpation of the right calf popliteal area and posterior thigh. Signal present in the DP and DT pulses bilaterally LYMPH: No cervical adenopathy. ____ NEURO: She is alert and oriented to person, place, and time. She has normal strength. No cranial nerve deficit or sensory deficit. Coordination and gait normal. GCS eye subscore is 4. GCS verbal subscore is 5. GCS motor subscore is 6. Cerebellar tests wnl. ____ SKIN: Skin is warm and dry. She is not diaphoretic. ____ PSYCH: She has a normal mood and affect. Her behavior is normal. Judgment and thought content normal. ____ Medical Decision & Procedures ER Provider Diagnostic Interpretation: Radiology results as stated below per my review and radiologist interpretation: ULTRASOUND R VENOUS DOPP LOWER EXT UNILAT CLINICAL HISTORY: Right leg swelling COMPARISON STUDY: No previous studies for comparison. FINDINGS: Real-time and color flow Doppler imaging were performed. Flow was seen within the femoral, popliteal and calf veins with no intraluminal thrombus demonstrated. The saphenous vein is patent. IMPRESSION: No evidence of right lower extremity DVT. Electronically signed by: Heriberto Cody M.D. 06/22/2017 2:24 PM Dictated Date/Time: 06/22/2017 2:24 PM Laboratory Results 06/22/17 13:45 Test 06/22/17 13:45 Prothrombin Time 24.3 SECONDS (9.0-12.0) Prothromb Time International Ratio 2.4 (0.9-1.1) Activated Partial Thromboplast Time 36.6 SECONDS (21.0-31.0) Partial Thromboplastin Ratio 1.4 Anion Gap 2.0 mmol/L (3-11) Est Creatinine Clear Calc Drug Dose 27.1 ml/min Estimated GFR () 36.8 Estimated GFR (Non- 31.7 BUN/Creatinine Ratio 16.4 (10-20) Calcium Level 8.5 mg/dl (8.5-10.1) Laboratory results reviewed by ms ED Course 1336: The patient was evaluated in room C11. A complete history and physical exam was performed. 1515: Vital signs are stable. Labs show an elevated creatinine, at baseline. INR is therapeutic. Ultrasound shows no DVT. Follow up with PCP. DISCHARGE - Plan of care discussed with patient and questions answered. The patient was given both verbal and printed discharge instructions. The patient verbalized understanding and ability to comply. The patient is to seek outpatient follow up as noted in the discharge instructions. The patient verbalized understanding and ability to comply. The patient is discharged in stable condition. The patient was instructed to return for worsening symptoms. Medical Decision Vital signs are stable. Labs show an elevated creatinine, at baseline. INR is therapeutic. Ultrasound shows no DVT. Follow up with PCP. DISCHARGE - Plan of care discussed with patient and questions answered. The patient was given both verbal and printed discharge instructions. The patient verbalized understanding and ability to comply. The patient is to seek outpatient follow up as noted in the discharge instructions. The patient verbalized understanding and ability to comply. The patient is discharged in stable condition. The patient was instructed to return for worsening symptoms. Medication Reconcilliation Current Medication List: was personally reviewed by me Blood Pressure Screening Patient's blood pressure: Elevated blood pressure Blood pressure disposition: Did not require urgent referral Impression Primary Impression: Leg pain Scribe Attestation The scribe's documentation has been prepared under my direction and personally reviewed by me in its entirety. I confirm that the note above accurately reflects all work, treatment, procedures, and medical decision making performed by me. The chart was completed utilizing [employer] Speech voice recognition software. Grammatical errors, random word insertions, pronoun errors, and incomplete sentences are an occasional consequence of this system due to software limitations, ambient noise, and hardware issues. Any formal questions or concerns about the content, text, or information contained within the body of this dictation should be directly addressed to the physician for clarification. Departure Information Dispostion Home / Self-Care Referrals Shiv Langston M.D. (PCP) Forms HOME CARE DOCUMENTATION FORM, IMPORTANT VISIT INFORMATION Patient Instructions My [facility] Additional Instructions Keep her leg elevated, use Yannick bandages keep your leg wrapped, take Tylenol for the pain, and use ice to the affected area to relieve the pain. Problem Qualifiers Primary Impression: Leg pain Laterality: unspecified laterality Qualified Codes: M79.606 - Pain in leg, unspecified
[2017-06-22 14:12] LABS: INR 2.4 (0.9-1.1); PTT PATIENT 36.6 SECONDS (21.0-31.0)
[2017-06-22 14:24] LABS: CALCIUM 8.5 mg/dl (8.5-10.1); CREATININE 1.55 mg/dl (0.60-1.20); POTASSIUM 4.5 mmol/L (3.5-5.1)
--- NOTE | 2017-06-22 14:25 | DIAGNOSTIC IMAGING REPORT ---
ULTRASOUND R VENOUS DOPP LOWER EXT UNILAT CLINICAL HISTORY: Right leg swelling COMPARISON STUDY: No previous studies for comparison. FINDINGS: Real-time and color flow Doppler imaging were performed. Flow was seen within the femoral, popliteal and calf veins with no intraluminal thrombus demonstrated. The saphenous vein is patent. IMPRESSION: No evidence of right lower extremity DVT. Electronically signed by: Heriberto Cody M.D. 06/22/2017 2:24 PM Dictated Date/Time: 06/22/2017 2:24 PM
[2017-06-22 14:56] VITALS: BP 131/73; PULSE 69; O2SAT 96
== END 2017-06-22 15:23 | disposition home or self-care (01) ==
LOC: C.EDB 13:26 → C.EDC 15:23
DX: M79.604 Pain in right leg (principal); C34.90 Malignant neoplasm of unspecified part of unspecified bronchus or lung; R60.9 Edema, unspecified; Z86.718 Personal history of other venous thrombosis and embolism; I10 Essential (primary) hypertension; Z90.49 Acquired absence of other specified parts of digestive tract; Z90.710 Acquired absence of both cervix and uterus; Z79.01 Long term (current) use of anticoagulants; Z79.899 Other long term (current) drug therapy; Z91.041 Radiographic dye allergy status; Z88.5 Allergy status to narcotic agent

== ENCOUNTER → 2017-06-26 | Outpatient (CLI) | payer BC ==
[~2017-06-26] MED LIST changes: +DIPH-437 PO; -FURO-85 PO; -IPRASOL4 INH
--- NOTE | 2017-06-26 10:33 | DIAGNOSTIC IMAGING REPORT ---
R KNEE 3 VIEWS CLINICAL HISTORY: M79.604 Right leg [id number] pain COMPARISON: None. DISCUSSION: The bones and joint spaces appear intact. There is no evidence of fracture, dislocation or bony disease. There is no evidence for soft tissue swelling. IMPRESSION: Negative study. The above report was generated using voice recognition software. It may contain grammatical, syntax or spelling errors. Electronically signed by: Esdras Robledo M.D. 06/26/2017 10:32 AM Dictated Date/Time: 06/26/2017 10:31 AM
--- NOTE | 2017-06-26 10:35 | DIAGNOSTIC IMAGING REPORT ---
R TIBIA/FIBULA 2 VIEWS ROUTINE HISTORY: 76 years-old Female M79.604 Right leg [id number] acute right leg pain without trauma COMPARISON: Right knee radiographs of same day TECHNIQUE: 2 views of the right tibia and fibula FINDINGS: Bones appear mildly demineralized. No acute fracture or dislocation. Moderate sized enthesophyte of the Achilles calcaneus. Moderate soft tissue swelling about the lower leg, ankle and imaged foot most pronounced posterior medially. No opaque foreign body. IMPRESSION: 1. No acute fracture or dislocation. 2. Moderate soft tissue swelling about the lower leg, ankle and imaged foot. The above report was generated using voice recognition software. It may contain grammatical, syntax or spelling errors. Electronically signed by: Esequiel Phillips M.D. 06/26/2017 10:33 AM Dictated Date/Time: 06/26/2017 10:31 AM
== END | disposition home or self-care (01) ==
LOC: C.RAD1850 10:07
PROVIDERS: ATTEND Physician Assistant
DX: M79.604 Pain in right leg (principal)

== ENCOUNTER → 2017-07-02 | Outpatient (CLI) | payer BC ==
--- NOTE | 2017-07-02 15:05 | DIAGNOSTIC IMAGING REPORT ---
RIGHT LOWER LEG MRI HISTORY: M79.604 Right leg pain calf [id number] TECHNIQUE: Multiplanar multisequence MRI of the right lower leg was performed without the use of intravenous contrast. COMPARISON STUDY: Right tibia/fibula 06/26/2017. FINDINGS: Diffuse subcutaneous edema throughout the lower leg most pronounced at the ankle. There is a skin marker along the mid to distal calf. No underlying abnormality within the muscles of the lower leg. The tibia and fibula are intact. No fracture or dislocation. Small patchy area of edema-like marrow signal within the proximal shaft of the tibia. This is best seen on coronal image 11 and sagittal image 13. IMPRESSION: 1. Diffuse subcutaneous edema throughout the lower leg and ankle. 2. Small patchy area of edema-like marrow signal within the proximal shaft of the tibia. This is nonspecific and could be age-related. No definite fracture identified at this time. Stress related changes could also have a similar appearance if the patient is complaining of pain at this location. Electronically signed by: Gilbert Vásquez M.D. 07/02/2017 3:03 PM Dictated Date/Time: 07/02/2017 2:57 PM
--- NOTE | 2017-07-02 15:28 | DIAGNOSTIC IMAGING REPORT ---
CHEST 2 VIEWS ROUTINE HISTORY: LUNG CANCER COMPARISON: Chest 01/14/2017. FINDINGS: No pneumothorax. Opacification within the right lower lung zone, unchanged. This favors postoperative change. Surgical clips at the right hilum. Mild emphysema. No new focal lung consolidations within the left lung. The cardiac silhouette is normal in size. IMPRESSION: No significant change compared to the prior study. No acute process. Stable postoperative changes within the right hemithorax. Electronically signed by: Gilbert Vásquez M.D. 07/02/2017 3:27 PM Dictated Date/Time: 07/02/2017 3:26 PM
== END | disposition home or self-care (01) ==
LOC: C.MRI 13:23
PROVIDERS: ATTEND Physician Assistant
DX: C34.90 Malignant neoplasm of unspecified part of unspecified bronchus or lung (principal); M79.604 Pain in right leg

== ENCOUNTER → 2017-09-25 | Outpatient (CLI) | payer BC ==
--- NOTE | 2017-09-25 15:51 | DIAGNOSTIC IMAGING REPORT ---
(CHEST) THORAX WITHOUT CT DOSE: 661.10 mGy.cm CLINICAL HISTORY: 76 years-old Female with LUNG CA. Follow-up study in a patient with history of lung cancer. Subsequent treatment strategy. TECHNIQUE: Multiaxial CT images of the chest were performed without contrast. A dose lowering technique was utilized adhering to the principles of ALARA. COMPARISON: CT abdomen and pelvis of same day, CT chest 03/27/2017, CTA chest 01/13/2017. FINDINGS: Homogeneous appearance of the thyroid. Evaluation for adenopathy is limited without the use of IV contrast. No pathologically enlarged lymph nodes are identified. Heart is normal in size with trace pericardial effusion. Thoracic aorta demonstrates no aneurysm. There is no pneumothorax or pleural effusion identified. Chronic postoperative changes about the right lung with volume loss and dense fibrosis about the perihilar distribution. Chronic consolidation with air bronchograms within the right lower lobe is also unchanged. Unchanged linear consolidative opacity about the apical segment right upper lobe, 1.7 x 0.7 cm favoring area of scarring. 4 mm solid nodule of the apical posterior segment left upper lobe, image 41 series 4 also appears stable from comparison. No new or progressive pulmonary nodules identified. Compensatory hyperinflation about the left lung. There are subsegmental groundglass opacities about the lateral basal segment left lower lobe, image 221 series 4. Mild biapical pleural-parenchymal scarring. 2 mm pleural-based nodule of the right upper lobe, image 72 series 4 is also stable. Central airways appear patent. Prior cholecystectomy. No acute process of the imaged upper abdomen. Soft tissues and breast parenchyma appear unremarkable. Unchanged subcutaneous scarring about the superior right breast/chest wall. Demineralized appearance of the bones. No lytic or blastic suspicious lesions identified. Unchanged increased sclerosis involving several ribs of the right hemithorax, possibly posttreatment related changes. Multilevel spondylitic spurring about the spine. IMPRESSION: 1. Stable appearing chronic postoperative changes about the right lung with associated fibrosis and volume loss. 2. There are a few scattered areas of abnormal parenchymal scarring and solid pulmonary nodules as detailed above including a 4 mm nodule of the apical posterior segment left upper lobe, unchanged from comparison study. 3. Subsegmental groundglass opacities about the lateral basal segment left lower lobe are suspicious for a mild pneumonitis. 4. No pathologically enlarged lymph nodes. Electronically signed by: Esequiel Phillips M.D. 09/25/2017 3:50 PM Dictated Date/Time: 09/25/2017 3:40 PM
--- NOTE | 2017-09-25 15:57 | DIAGNOSTIC IMAGING REPORT ---
ABD/PELVIS ORAL CONT ONLY CLINICAL HISTORY: 76 years-old Female presenting with LUNG CA. TECHNIQUE: Multidetector CT of the abdomen and pelvis was performed after the administration of oral contrast only. IV contrast: None. A dose lowering technique was used consistent with the principles of ALARA (as low as reasonably achievable). COMPARISON: None. 11/21/2016. CT DOSE (mGy.cm): The estimated cumulative dose is 661.10. 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 Architectural distortion of the right lung likely from postsurgical changes. Right pleural effusion may be present. Lung bases: Post treatment changes of the right lung. This appearance is unchanged from prior. Pleural thickening without evidence of pleural fluid in the right hemithorax. Minimal groundglass opacity peripherally in the left lower lobe, which is slightly increased from prior (series 5 image 70). This is not in a specifically round or masslike distribution to suggest a focal groundglass nodule. Normal heart size. Coronary artery calcification. No pericardial effusion. Liver: Normal morphology. Normal density. Biliary: No gross biliary ductal dilatation allowing for noncontrast technique. Gallbladder surgically absent. Pancreas: Foci of calcification along the pancreas either represent splenic arterial calcification or coarse parenchymal calcification. Correlate with a history of possible chronic pancreatitis. Spleen: Normal noncontrast appearance. Adrenal glands: Normal noncontrast appearance. Kidneys and ureters: Multiple well-defined hypodensities, the largest in the left kidney measuring 9.1 cm, likely simple cysts. No nephrolithiasis. No hydronephrosis. Mild urothelial thickening suggested. Bladder: Normal. Pelvic organs: Uterus surgically absent. No adnexal masses. Bowel: Limited diverticulosis of the junction of the descending and sigmoid colon. The appendix is not visualized though no inflammatory changes are evident in the right lower quadrant. No bowel obstruction. Peritoneal cavity: No free fluid or intraperitoneal gas. Lymph nodes: No gross lymphadenopathy allowing for noncontrast technique. Vasculature: Atherosclerosis of the normal caliber abdominal aorta. Abdominal wall: Small fat-containing umbilical hernia. Musculoskeletal: Degenerative changes of the spine with erosive endplate changes at L2-3 and L3-4. This is slightly progressed at L3-4 since the prior exam. Osteopenia. Degenerative changes of the sacroiliac joints. No destructive osseous lesion. IMPRESSION: 1. Allowing for noncontrast technique, which significantly limits sensitivity for detection of intra-abdominal metastatic disease, no gross evidence of metastases in the abdomen or pelvis. No lymphadenopathy. No acute intra-abdominal pathology. 2. Prominent bilateral renal cysts. 3. Peripheral groundglass opacity in the left lower lobe. Or postinfectious or postinflammatory etiology may account for this appearance, which is slightly increased from prior exam. Neoplasm is considered unlikely. Attention on follow-up. 4. Erosive endplate changes at L2-3 and L3-4. This is slightly progressed at L3-4 since the prior exam. 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 Electronically signed by: Bunny Hopkins M.D. 09/25/2017 3:55 PM Dictated Date/Time: 09/25/2017 3:41 PM
== END | disposition home or self-care (01) ==
LOC: C.CTS 14:27
PROVIDERS: ATTEND Internal Medicine Hematology & Oncology
DX: C34.90 Malignant neoplasm of unspecified part of unspecified bronchus or lung (principal)